=== PATIENT | female | born 1965 | race Caucasian/White ===

== ENCOUNTER 2019-06-02 10:35 | Outpatient (CLI) | payer MEDICAID, SELFPAY ==
--- NOTE | 2019-06-02 10:48 | XR_ITS ---
WS: [id number] CHEST 2 VIEWS HISTORY: lung mass COMPARISON: Chest CT 05/05/2019 Lungs: Mild pulmonary hyperinflation. Pleural thickening and nodularity at the RIGHT apex is moderate ly improved since 05/05/2019. No change in the 15 mm nodule in the RIGHT lower lung field. LEFT lung is clear. Chronic emphysema. Cardiac size: Normal. Mediastinum/Aorta: Mild atherosclerosis aorta. Bones: RIGHT convex curvature thoracic spine and spondylosis. XR/XR chest 2V* [id number] IMPRESSION: 1. Slight improvement in the pleural thickening and nodularity at the RIGHT ap ex since 05/05/2019. 2. Stable 15 mm nodule in the RIGHT lower lung field. No progression since .
== END 2019-06-02 10:36 | disposition home or self-care (01) ==
PROVIDERS: Family Provider Nurse Practitioner Family; PCP Nurse Practitioner Family; Visit Provider Thoracic Surgery (Cardiothoracic Vascular Surgery)
DX: R91.8 Other nonspecific abnormal finding of lung field (principal)
CPT/HCPCS: 71046

== ENCOUNTER 2019-06-07 08:30 | Outpatient (CLI) | payer MEDICAID, SELFPAY | END 2019-06-07 08:31 | disposition home or self-care (01) | LOC: RT 08:34 | PROVIDERS: Family Provider Nurse Practitioner Family; PCP Nurse Practitioner Family; Visit Provider Thoracic Surgery (Cardiothoracic Vascular Surgery) | DX: R91.8 Other nonspecific abnormal finding of lung field (principal) | CPT/HCPCS: 94060; 94726; 94729 ==

== ENCOUNTER 2019-06-16 13:47 | Outpatient (CLI) | payer MEDICAID, SELFPAY ==
--- NOTE | 2019-06-16 | US_ITS ---
WS: [id number] Pelvic ultrasound, 06/16/2019 Clinical Data: PELVIC MASS Comparison: None. Findings: The uterus measures 3.39 cm x 5.5 cm x 7.24 cm. Numerous leiomyomas are seen within the uterus. The l argest measures 1.6 x 2.9 x 2.4 cm. There is also an area of increased echogenicity which also probab ly represents a fibroid measuring 0.8 x 1.0 x 1.2 cm. The endometrium is 0.26 cm. No intrauterine or abnormal intrauterine mass is seen. The ovaries were not imaged. There is no fluid in the cul-de-sac. US/US pelvic with transvaginal Impression: Multiple uterine leiomyomas.
--- NOTE | 2019-06-16 15:18 | CTR_ITS ---
PROCEDURE INFORMATION: Exam: CT Neck With Contrast Exam date and time: 06/16/2019 3:36 PM Age: 53 years old Clinical indication: Condition or disease; Cancer; Other: Supraglotic squamous cell; Additional info: HX of cancer TECHNIQUE: Imaging protocol: Computed tomography images of the neck with intravenous contrast. Total DLP: 542.48 mGy-cm Radiation optimization: All CT scans at this facility use at least one of these dose optimization techniques: automated exposure control; mA and/or kV adjustment per patient size (includes targeted exams where dose is matched to clinical indication); or iterative reconstruction. Contrast material: OMNI 300; Contrast volume: 95 ml; Contrast route: IV; COMPARISON: CT neck w con* [id number] 01/05/2019 9:03 AM FINDINGS: Nasopharynx: Asymmetric torus tubarius. Oropharynx: Unremarkable. No significant tonsillar enlargement. Hypopharynx: Unremarkable Larynx: Unremarkable. Normal epiglottis. Retropharyngeal space: Unremarkable. Submandibular/Parotid glands: Normal. Glands are normal in size. Thyroid: Normal. No enlarged or calcified nodules. Lymph nodes: Unremarkable. No lymphadenopathy. Trachea: Visualized trachea is unremarkable. Lungs: Large cavitary spiculated mass in the right upper lobe is partially imaged measuring at least 5.0 by 4.5 cm in size. Additional adjacent cavitary nodule image 86 measures 1.2 x 1.5 cm in size. Severe emphysematous changes are noted. There is adjacent right apical pleural thickening. There is some mild pneumonitis and volume loss in the right upper lobe adjacent to the mass. Bones/joints: Osteopenia and moderate degenerative changes are noted in the cervical spine. No neoplastic bony destruction or acute fracture. Soft tissues: There is mild asymmetric soft tissue thickening and asymmetry torus tubarius 25. CT/CT neck w con* [id number] IMPRESSION: 1. Mild asymmetry/mucosal thickening of the right torus tubarius compared to the left. No additional mass. No pathologic adenopathy in the neck. 2. Large cavitary mass with adjacent smaller cavitary nodule right upper lobe. Fleischner follow up recommendations for incidental nodules are not indicated. Follow up per patient's medical condition. Radiation Dose CTDIVOL = (mGy): DLP = 542.48 (mGy-cm)
--- NOTE | 2019-06-16 15:18 | CT_ITS ---
WS: [id number] CT HEAD WITH AND WITHOUT CONTRAST HISTORY: HX OF CANCER TECHNIQUE: Noncontrast 2.5 mm axial images obtained from the vertex to the skull base. Additional candida ging performed at 2.5 mm axial images status post IV contrast. Bone and soft tissue windows are revie wed. All CT scans at [facility] use at least one of these dose optimization techniques: a utomated exposure control; mA and/or kV adjustment per patient size (includes targeted exams where do se is matched to clinical indication); or iterative reconstruction. CONTRAST: Omnipaque 300; 95 mL IV. DLP: 1136.13 mGy.cm COMPARISON: None available. No acute intracranial hemorrhage, edema or midline shift. No enhancing mass or vascular malformations identified. Dural venous sinuses are normally enhancing. Visualized [place] is unremarkable. Paranasal sinuses as visualized: Clear. Mastoid air cells: Clear. Calvarium and scalp: Intact. CT/CT head wo/w con [id number] IMPRESSION: 1. No intracranial hemorrhage or mass. 2. Negative CT brain.
[2019-06-16] MEDS: iohexol 300 mg/mL 100 mL Btl 50 ML IV (15:37)
[2019-06-16] MEDS: iohexol 300 mg/mL 100 mL Btl 45 ML IV (15:38)
== END 2019-06-16 13:48 | disposition home or self-care (01) ==
LOC: RAD 13:47
PROVIDERS: Family Provider Nurse Practitioner Family; PCP Nurse Practitioner Family; Visit Provider Nurse Practitioner Family
DX: R19.00 Intra-abdominal and pelvic swelling, mass and lump, unspecified site (principal); Z85.9 Personal history of malignant neoplasm, unspecified; D25.9 Leiomyoma of uterus, unspecified
CPT/HCPCS: 70470; 70491; 76830; 76856

== ENCOUNTER 2019-07-05 05:37 | Day surgery (SDC) | payer MEDICAID, SELFPAY ==
[2019-07-04 12:43] VITALS: BMI 25.4
[2019-07-05] VITALS (12 sets, daily range): BP systolic 99–125; BP diastolic 48–71; PULSE 63–97; RESP 13–21; TEMP 36.4–36.9; O2SAT 88–99
--- NOTE | 2019-07-05 05:53 | ECG_ITS ---
Measurements Intervals [place] Rate: 54 P: 65 FL: 155 QRS: 66 QRSD: 104 T: 50 QT: 432 QTc: 412 SINUS BRADYCARDIA INCOMPLETE RIGHT BUNDLE BRANCH BLOCK [90+ ms QRS DURATION, TERMINAL R IN V1/V2, 40+ ms S IN I/aVL/V4/V5/V6] No previous ECG available for comparison Electronically Signed On 07-05-2019 15:22:24 ROLLER OPERATOR by Yordan Weber M.D. [email or web address]
--- NOTE | 2019-07-05 06:13 | ANES.PREANE2 ---
Pre-Anesthetic Assessment Pre-Anesthetic Assessment: Height/Weight: Height 1.57 m Weight 63.049 kg Temp Pulse Resp BP Pulse Ox 97.8 F 63 16 125/69 97 07/05/19 06:01 07/05/19 06:01 07/05/19 06:01 07/05/19 06:01 07/05/19 06:01 Preop Diagnosis: RUL mass Proposed Procedure: Operation Date: 07/05/19 07:00 Proposed Procedures p Bronchoscopy(Not Applicable) - Jose Mera MD Last intake: Intake Last Liquid Date 07/04/19 Last Liquid Time 20:00 Last Solid Date 07/04/19 Last Solid Time 20:00 Social: Social History: Tobacco Packs per day: 1.5 Pack years: 50+ Exam: Pre-Anes Outpt Exam: alert, oriented x 3, clear to auscultation bilaterally and regular rate & rhythm Airway: Submandibular: WNL Cervical ROM: WNL MP: 1 Additional comments: edentulous Pulmonary: Pulmonary: COPD Comments: RUL mass Metabolic: Metabolic: Thyroid Anesthetic Plan: ASA status: 3 Anesthesia: General PFSH Anesthesia PFSH: Social History (Updated 07/04/19 @ 12:38 by Wendy Thakkar) Smoking and tobacco status: current every day smoker cigarettes Packs smoked per day: 1.5 Alcohol intake: never Data Anesthesia Cardiac Studies: No Data to Display
--- NOTE | 2019-07-05 06:22 | PM.OPSURHP ---
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 She has some consolidation and a potential mass in the apex of the right upper lobe as noted on CT scan of May 05, 2019. She was recently treated as an outpatient for can community-acquired pneumonia and concerns of a right middle lobe pneumonia. CT scan of May 05 reveals a 5.8 x 5.9 cm right upper lobe consolidative lesion. There is surrounding patchy infiltrates. Most recent chest x-ray of June 02 as compared to the CT scan of May 05 describes slight improvement of this area, though still prominent. I have recommended bronchoscopy for further evaluation. Pending results of the study, we may recommend a repeat PET scan. Patient has a long history tobacco use and continues to smoke at least a pack a day. She has been followed by Dr. Turcios from oncology. She was scheduled for follow-up visit with Dr. García from ENT to consider repeat panendoscopy, though she did miss that appointment. Review of Systems Const: Reports: other (Complains of neck pain); Denies: fever, chills, change in appetite, change in weight, fatigue or night sweats Eyes: Denies: change in vision or blurry vision ENMT: Denies: painful swallowing or hoarseness Card: Denies: chest pain, palpitations, irregular heart rhythm or edema Resp: Reports: shortness of breath and non-productive cough GI: Denies: abdominal pain, nausea, vomiting, difficulty swallowing, heartburn/indigestion or change in bowel habits : Denies: painful urination, urinary frequency, urinary urgency or urinary hesitancy Musc: Denies: extremity pain or extremity swelling Skin/Breast: Denies: rash Neuro: Denies: headache, numbness in extremities, weakness in extremities or changes in sensation Psych: Denies: anxiety, depression or change in appetite Endo: Denies: excessive urination, excessive thirst or cold intolerance Enrique/Lymph: Denies: easy bruising, easy bleeding, petechiae or enlarged lymph nodes Medications/Allergies Allergies Allergy/AdvReac Type Severity Reaction Status Date / Time No Known Allergies Allergy Verified 07/04/19 12:38 PFSH PFSH: Medical History COPD (chronic obstructive pulmonary disease) History of malignant neoplasm of larynx Lung mass Social History Smoking and tobacco status: current every day smoker cigarettes Packs smoked per day: 1.5 Alcohol intake: never Vital Signs Vitals Signs: Last Vital Signs Temp 97.8 F 07/05/19 06:01 Pulse 63 07/05/19 06:01 Resp 16 07/05/19 06:01 BP 125/69 07/05/19 06:01 Pulse Ox 97 07/05/19 06:01 Weight: Weight last 48 hrs Weight 139 lb Physical Exam Const: COMMON NORMALS: oriented x3 and alert ORIENTATION/CONSCIOUSNESS: Yes oriented to person, Yes oriented to place and Yes oriented to time HENMT: COMMON NORMALS: normocephalic HEAD & SCALP: normocephalic; no cranial bruits Neck/C-Spine: COMMON NORMALS: supple, no JVD and no carotid bruits GENERAL: Yes trachea midline and No lymphadenopathy CERVICAL SPINE: Yes cervical ROM normal Chest: COMMONS NORMALS: inspection of chest normal and palpation of chest normal Resp: COMMON NORMALS: normal respiratory effort, no use of accessory muscles and percussion normal EFFORT & INSPECTION: Yes able to speak in complete sentences and Yes symmetric chest movement AUSCULTATION: wheezes (Late expiration) expiratory wheezes PERCUSSION: percussion normal Cardio: COMMON NORMALS: no JVD, regular rate, regular rhythm, S1 normal heart sound, S2 normal heart sound, no gallops, no murmurs, no rub and peripheral pulses 2+ throughout JUGULAR VENOUS DISTENTION: no JVD RATE: regular rate RHYTHM: regular rhythm HEART SOUNDS: S1 normal and S2 normal PERIPHERAL PULSES: pulses 2+ throughout Neuro: COMMON NORMALS: oriented x3, no focal motor deficits and no sensory deficits noted SENSORIUM/ORIENTATION: Yes alert, Yes oriented to person, Yes oriented to place and Yes oriented to time GAIT: Yes normal gait A&P Assessment and plan (1) Lung mass: 53-year-old female with laryngeal carcinoma status post chemotherapy and XRT. She has a right upper lobe consolidative mass which has slightly improved over the past 2 months though is still quite prominent. We recommended bronchoscopy for further assessment. She continues to smoke at least a pack a day. Rationale was carefully discussed. Details the risk of procedure reviewed and consents have been provided for signature. Status: Acute Code(s): R91.8 - Other nonspecific abnormal finding of lung field Coding Level of Care Code Acute Business Banking Officer for Chg Fwd Exam Detailed Medical Decision Making Moderate Complexity Diagnoses Lung mass R91.8 Time Spent (min) 25
[2019-07-05] MEDS: sodium chloride 0.9% 1,000 ML 30 ML IV (06:25)
[2019-07-05 06:34] LABS: INR 0.88 (0.8-1.2)
[2019-07-05] MEDS: cetacaine Spray 5 gm Can 1 SPRAY TOPICAL (07:23)
[2019-07-05] MEDS: sodium bicarbonate 1 mEq/mL SDV 50mL 50 MEQ XX (07:29)
--- NOTE | 2019-07-05 07:38 | PM.OP ---
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 They showed increased activity on PET scan of June 10, 2019. Continued tobacco use. Bronchoscopy was recommended. Procedure: Procedure: Ms. Elena underwent general endotracheal anesthesia with an 8.0 endotracheal tube. With adequate anesthesia, flexible bronchoscope was inserted through the endotracheal tube. In a methodical fashion the trachea, gisell, right main bronchus and associated lobar bronchi were inspected. In a similar fashion the left side was inspected. Secretions were cleared as needed to allow for adequate inspection. Normal saline or normal saline and bicarbonate solution were used to clear thick or tenacious secretions. Findings: Main gisell and secondary gisell were sharp. Branching anatomy was normal. There is no evidence for submucosal infiltration or extrinsic compression. Mucosa was minimally friable. Mucosal was mildly to modestly erythematous. No endobronchial lesions or deformation of orifice ease were noted. Saline/bicarbonate solution was utilized to clear moderately thick and clear secretions from all prominent airways. As no suspicious lesions were identified, no biopsies were taken. Once completed, the scope was withdrawn under direct visualization confirming cleared secretions and no substantial bleeding. Endoscopic photos were taken as required to document pathology. The patient tolerated the procedure well and was taken to postoperative care unit. I did travel counselor automobile club with the family at the completion of the procedure. We will plan for outpatient pulmonary function studies to be performed and then follow-up in my clinic to separate consider right thoracoscopy and appropriate biopsy of concerning PET positive lesions in the right lung. Her substantial lung dysfunction and continued tobacco use does put her at a markedly increased risk for operative complications.
--- NOTE | 2019-07-05 07:44 | SUR.PHASEI ---
0743 PATIENT TO PACU AT THIS TIME FROM OR. RR EVEN AND UNLABORED. PATIENT PLACED ON SIMPLE MASK AT 8L, SPO2 99%. PATIENT UNRESPONSIVE TO VERBAL STIMULI AT THIS TIME. PROTECTING AIRWAY.
[2019-07-05] MEDS: ipratropium 0.5 mg/2.5 mL Neb INHALATION (08:08)
== END 2019-07-05 09:05 | disposition home or self-care (01) ==
PROVIDERS: Family Provider Nurse Practitioner Family; PCP Nurse Practitioner Family; Visit Provider Thoracic Surgery (Cardiothoracic Vascular Surgery)
PROC: 0BJ08ZZ Inspection of Tracheobronchial Tree, Via Natural or Artificial Opening Endoscopic (ICD-10-PCS; CPT 31622; principal; 2019-07-05 07:00)
DX: R91.8 Other nonspecific abnormal finding of lung field (principal); F17.210 Nicotine dependence, cigarettes, uncomplicated; J44.9 Chronic obstructive pulmonary disease, unspecified; Z85.118 Personal history of other malignant neoplasm of bronchus and lung; Z92.21 Personal history of antineoplastic chemotherapy; Z92.3 Personal history of irradiation
CPT/HCPCS: 31622; 12345; 36415; 85610; 93005; J2001; J2704; J3010; J3490; J7030; J7611; J7644

== ENCOUNTER 2019-07-24 14:40 | Inpatient (IN) | payer MEDICAID, SELFPAY ==
[2019-07-20 10:01] VITALS: BMI 25.2
[2019-07-20 10:26] LABS: Add Urine Microscopic? NO
[2019-07-20 10:29] LABS: Basophils % 0.7 %; Eosinophils # 0.1 10^3/uL (0.0-0.8); Hematocrit 39.6 % (37.0-47.0); Hemoglobin 12.6 g/dL (11.5-15.3); Lymphocytes # 0.9 10^3/uL (0.8-4.8); Lymphocytes % 16.5 %; Mean Corpuscular HGB Conc 31.8 g/dL (30.0-36.0); Mean Platelet Volume 9.3 fL (7.4-10.4); Monocytes # 0.5 10^3/uL (0.2-0.9); Monocytes % 8.9 %; Neutrophils % 71.4 %; Nucleated Red Blood Cells % 0 %; Platelet Count 319 10^3/cmm (130-400); Red Blood Count 4.35 10^6/uL (4.1-5.3); White Blood Count 5.6 10^3/uL (4.0-10.0)
--- NOTE | 2019-07-20 10:33 | ANES.PREANE2 ---
Pre-Anesthetic Assessment Pre-Anesthetic Assessment: Height/Weight: Height 1.57 m Weight 62.596 kg Preop Diagnosis: Right upper lobe lung mass Proposed Procedure: Operation Date: 07/24/19 08:10 Proposed Procedures p VATS with poss thoracotomy with lung biopsy(Right) - Jose Mera MD Familial anesthetic complications: None Social: Social History: Tobacco and No alcohol Packs per day: 1.5 ppd Exam: Pre-Anes Outpt Exam: alert, oriented x 3, clear to auscultation bilaterally and regular rate & rhythm Airway: Cervical ROM: WNL MP: 1 Dentition: False Pulmonary: Pulmonary: COPD Comments: Lung mass CV/HEM: CV/HEM: None reported : : None reported Hepatic: Hepatic: None reported GI: GI: None reported Metabolic: Metabolic: Thyroid Musc/skel: Musc/skel: None reported Neuropsych: Neuropsych: None reported Anesthetic Plan: ASA status: 3 Anesthesia: General Risk of > 500 ml blood loss (7ml/kg in children): No PFSH Anesthesia PFSH: Social History Smoking and tobacco status: current every day smoker cigarettes Packs smoked per day: 1.5 Alcohol intake: never Data Anesthesia CBC & Chem 7: 07/20/19 10:10 Other Labs: Laboratory Results - last 48 hr 07/20/19 10:10 WBC 5.6 RBC 4.35 Hgb 12.6 Hct 39.6 MCV 91.0 MCH 29.0 MCHC 31.8 RDW 14.0 Plt Count 319 MPV 9.3 Neut % (Auto) 71.4 Lymph % (Auto) 16.5 [place] % (Auto) 8.9 Eos % (Auto) 2.0 Baso % (Auto) 0.7 Neut # (Auto) 4.0 Lymph # (Auto) 0.9 [place] # (Auto) 0.5 Eos # (Auto) 0.1 Baso # (Auto) 0.0 Nucleated RBC % (auto) 0 Nucleated RBCs # 0.0 Cardiac Studies: No Data to Display
[2019-07-20 10:49] LABS: Alanine Aminotransferase 9 U/L (0-33); Albumin Level 3.7 g/dL (3.5-5.2); Alkaline Phosphatase 87 IU/L (35-105); Anion Gap 12.3 (5-19); Aspartate Amino Transferase 14 U/L (0-32); Blood Urea Nitrogen 11 mg/dL (6-20); Calcium 9.8 mg/dL (8.5-10.5); Carbon Dioxide 30 mmol/L (22-29); Chloride 102 mmol/L (98-107); Creatinine Clr Calc Pharmacy 78.0561; Globulin 4.2 g/dL (1.3-4.6); Glomerular Filtration Rate 86.6 mL/min (90-130); Glucose 110 mg/dL (65-115); Osmolality Calculated 287 mOsm/kg (285-295); Potassium 4.3 mmol/L (3.5-5.1); Sodium 140 mmol/L (136-145); Total Bilirubin 0.4 mg/dL (0.15-1.2); Total Protein 7.9 g/dL (6.6-8.7)
[2019-07-20 10:53] LABS: INR 0.89 (0.8-1.2)
[2019-07-20 10:56] LABS: Bilirubin Urine Neg (NEGATIVE); Blood Urine Neg (Negative); Glucose Urine UA Norm (Normal); Ketones Urine Negative (Negative); Leukocyte Esterase Urine Negative (Negative); Nitrate Urine Negative (Negative); Protein Urine Neg (Negative); Specific Gravity, Urine 1.005 (1.005-1.030); Urine Appearance Clear (CLEAR); Urine Color Straw (Yellow); Urobilinogen Urine Norm (Negative)
[2019-07-24] VITALS (27 sets, daily range): BP systolic 79–121; BP diastolic 43–73; PULSE 54–89; RESP 13–25; TEMP 36.4–36.6; O2SAT 94–100
[2019-07-24] MEDS: sodium chloride 0.9% 1,000 ML 30 ML IV (07:41)
--- NOTE | 2019-07-24 09:17 | W.PM.OPSUD ---
Surgery/Procedure H&P Update DATE OF PROCEDURE: July 24, 2019 DATE H&P PERFORMED: 07/05/19 H&P UPDATE INFORMATION: I have reviewed H&P completed within last 30 days, I have examined patient prior to procedure and No changes to prior documentation PREOP DIAGNOSIS: Right upper lobe lung mass PLANNED PROCEDURE: Operation Date: 07/24/19 09:30 Proposed Procedures p VATS with poss thoracotomy with lung biopsy(Right) - Jose Mera MD
--- NOTE | 2019-07-24 09:57 | ANES.PROC ---
Anesthesia Procedures Procedure/Date: 07/24/19 Thoracic epidural T56 Procedure Narrative: Requested by Dr Mera to place thoracic epidural for postop pain management. Verbal consent given . Sedated in the OR, placed LLD position. Sterile P&D. Placed T5-6 without difficutly. - test done [place] 1.5% with epi 3cc
[2019-07-24] MEDS: vancomycin 1,000 MG SDV 2000 MG IRRIGATION (10:48)
--- NOTE | 2019-07-24 11:04 | SUR.OPER ---
1050 - Pt's sister notified of surgery start via her cell phone.
--- NOTE | 2019-07-24 11:05 | ANES.PROC ---
Anesthesia Procedures Procedure/Date: 07/24/19 Arterial Line: Time Out Performed: Yes Consent: requested by attending/covering physician Size (Gauge): 20 Technique Used: guide wire technique Post-Procedure: dry sterile dressing placed Patient Tolerated Procedure: well and no complications Complications: none Site: right and radial
--- NOTE | 2019-07-24 12:03 | SUR.OPER ---
1253 - Pt's sister updated on surgery progress and pt status via her cell phone.
--- NOTE | 2019-07-24 14:01 | PM.OP ---
Operative Report Date of procedure: July 24, 2019 Pre-op Diagnosis: Right upper lobe lung mass Post-op diagnosis: same Procedure Done: 2. Right thoracoscopy with wedge resection right lower lobe nodule which returned granulomatous inflammation 1. Right upper lobectomy Specimens removed/disposition: Wedge resection right lower lobe returned granulomatous inflammation by frozen section Right upper lobe sent for permanent specimen Surgeon: Jose Mera Anesthesia: General Complications: None: Post procedure chest x-ray pending Condition: stable Disposition: ICU Brief History: 54-year-old female with history of laryngeal carcinoma status post radiation therapy. She has right upper lobe large cystic lesion as well as satellite lesions in the right lower lobe lesion with varying activities by PET scan. Bronchoscopy been originally performed the revealed no endobronchial lesions. Unfortunately, she continues to smoke between 1 and 2 packs/day. It appears that she has advanced thoracic disease, though this may be a new primary. Given the negative bronchoscopy, rib recommended thoracoscopy with attempt at biopsy for diagnosis. She has poor PFTs and overall is in poor condition. Rationale for our recommendation was carefully discussed. Proper consents have been reviewed and signed. Procedure: Ms. Elena received a thoracic epidural catheter preoperatively by Dr. Bui. She was taken operating room theater carefully positioned on the OR table where appropriate invasive lines were placed including arterial line. She underwent double-lumen endotracheal intubation with confirmation by endoscopy. She was carefully positioned in the left lateral decubitus position a fracture RotaTeq to padding and secured. Right lung was removed from ventilation. 3 thoracoscopic ports were placed in a triangular fashion in the anterior axillary line mid axillary line and posteriorly. Scope was inserted. There was clearly adhesions at the apex which we had noted on CT scan appeared to have a large cystic lesion. There are other satellite nodules in this area adhesions but a very descriptive isolated lesion in the right lower lobe. We elected to dissected area free and utilizing endoscopic stapler performed a generous triangular biopsy to include this lesion. This was sent to pathology which is returned this to be consistent with a area of granulomatous inflammation without malignancy. Therefore, despite our preference, we elected to proceed with dissecting out these adhesions in the apical region off the chest wall. This was done in a methodical meticulous fashion anteriorly to posteriorly. Once this was free, we elected to use endoscopic staplers to perform what would be essentially a right upper lobectomy with multiple firings of the stapler. Once the specimens were released, it was of such a size and bulkiness, that it would not come out through a port site. Therefore, we elected to connect the most anterior and posterior ports and a limited thoracotomy with retraction utilizing Finochietto retractor. This allowed us to remove the specimen intact and was sent to pathology for permanent sectioning. A single pleural drain was placed anteriorly and apically connected to Pleur-evac suction. The lung was reinflated, despite the multiple staple lines, and had a relatively low air leak. We was irrigated with antibiotic solution. Stasis confirmed. Retractors were removed. Sponge needle count was correct. We closed our limited left posterior thoracotomy incision by reapproximated chest wall with interrupted #1 Vicryl suture. Fascia closed with running 0 Vicryl suture followed by a layer of 2-0 Vicryl suture followed by Monocryl suture and surgical galina. History was secured to the skin utilizing 2-0 silk suture. Ms. Elena was then carefully returned to the supine position where she was awakened and extubated. She was then transported to ICU in stable condition. I did supervisor counseling and guidance with her family at the completion of the procedure.
--- NOTE | 2019-07-24 14:47 | XR_ITS ---
WS: [id number] XR chest 1V portable [id number] REASON FOR EXAM: post op thoracotomy FINDINGS: This study shows a chest tube in the right chest. Subsegmental atelectasis along the right upper lobe hilum and evidence of previous resection this area. A residue 10-15% pneumothorax on the right The nodular density in the right lower lung is not observed. A chest tube is seen on the right side. XR/XR chest 1V portable [id number] IMPRESSION: Postop findings with a chest tube in the right thoracic cavity with residue pne umothorax 10-15%.
[2019-07-24] MEDS: lactated ringers 1,000 ML 100 ML IV (14:56)
[2019-07-24] MEDS: ketorolac 30 mg/mL INJ IVP ×2 (14:56→20:32)
[2019-07-24] MEDS: ipratropium-albuterol 3 mL Neb INHALATION (16:22)
[2019-07-24] MEDS: morphine 4 mg/mL SDV 1 mL 2 MG IVP (16:28)
[2019-07-24] MEDS: ceFAZolin 1,000 MG in sodium chloride 0.9% (plus) 50 ML 100 MG IV (19:22)
[2019-07-25] VITALS (52 sets, daily range): BP systolic 86–128; BP diastolic 46–77; PULSE 57–89; RESP 15–26; TEMP 36.6–37.1; O2SAT 92–100
[2019-07-25] MEDS: lactated ringers 1,000 ML 100 ML IV ×3 (01:25→21:06)
[2019-07-25] MEDS: ketorolac 30 mg/mL INJ IVP ×4 (02:55→21:06)
[2019-07-25] MEDS: ceFAZolin 1,000 MG in sodium chloride 0.9% (plus) 50 ML 50 MG IV (02:55)
[2019-07-25 04:23] LABS: Basophils % 0.2 %; Eosinophils % 0.4 %; Hematocrit 34.4 % (37.0-47.0); Hemoglobin 10.8 g/dL (11.5-15.3); Lymphocytes # 0.8 10^3/uL (0.8-4.8); Lymphocytes % 9.4 %; Mean Corpuscular HGB Conc 31.4 g/dL (30.0-36.0); Mean Corpuscular Hemoglobin 30.3 pg (28.0-34.0); Mean Corpuscular Volume 96.6 fL (81-99); Mean Platelet Volume 9.2 fL (7.4-10.4); Monocytes # 0.6 10^3/uL (0.2-0.9); Monocytes % 7.5 %; Nucleated Red Blood Cells % 0 %; Platelet Count 261 10^3/cmm (130-400); Red Blood Count 3.56 10^6/uL (4.1-5.3); Red Cell Distribution Width 14.1 % (12.1-15.1); White Blood Count 8.5 10^3/uL (4.0-10.0)
[2019-07-25 04:40] LABS: Blood Urea Nitrogen 7 mg/dL (6-20); Calcium 8.4 mg/dL (8.5-10.5); Carbon Dioxide 29 mmol/L (22-29); Chloride 108 mmol/L (98-107); Glomerular Filtration Rate 127.6 mL/min (90-130); Glucose 117 mg/dL (65-115); Osmolality Calculated 291 mOsm/kg (285-295); Sodium 142 mmol/L (136-145)
--- NOTE | 2019-07-25 06:00 | XR_ITS ---
WS: [id number] XR chest 1V portable [id number] REASON FOR EXAM: Postop day #1 status post right upper lobectomy FINDINGS: Persistent pneumothorax on the right side is seen with a chest tube in good position. No pr ogression is seen since the earlier exams of July 24, 2019. The atelectatic segment off the right hi lum is again seen. And prominence of the right hilum is noted. XR/XR chest 1V portable [id number] IMPRESSION: Unchanged pneumothorax on the right Prominent soft the right hilum suggesting a mass effect. Postop changes of the right thoracic cavity.
--- NOTE | 2019-07-25 06:03 | PC.NURSE ---
SHIFT SUMMARY PT HAS BEEN ALERT AND ORIENTATED. PT PAIN HAS BEEN UNDER CONTROL WITH THE ROPRIVICAN PUMP. PT IV REMAINS PATENT. PT RIGHT UPPER LOBE REMAINS ABSENT, ALL OTHER LOBES REMAIN DIMINISHED. PT HAS BEEN TURNED PERIODICALLY. PT HAS HAD ADEQUATE URINE OUTPUT.
--- NOTE | 2019-07-25 07:22 | PM.PN ---
Subjective Subjective: Interval history: Postop day #1 status post right upper lobectomy. Uneventful night. Chest tube output 560 cc past 24 hours. Pain appears to be under good control. Chest x-ray with improvement of parenchymal hematoma. Consolidation appears to be improved. There is still incomplete filling of the chest cavity of the right lung with some pneumothorax laterally and apically. Vitals/I&O/Wt Last Vital Signs Temp 98.8 F 07/25/19 04:00 Pulse 64 07/25/19 06:00 Resp 19 H 07/25/19 06:00 BP 91/52 07/25/19 06:00 Pulse Ox 97 07/25/19 06:00 07/24/19 07/25/19 07/25/19 22:59 06:59 14:59 Intake Total 618.333 / 806.995 5751.667 / 1700.000 Output Total 572 / 572 1538 / 2110 Balance 46.333 / 96.333 -506.333 / -410.000 Physical Exam Chest: OTHER: Surgical dressing is dry. Resp: AUSCULTATION: diminished lung sounds bilateral Urinary Catheter Management^: Felipe: Cath Placed During This Visit: yes Reason for Continuing Indwelling Catheter: Accurate Measurement of Urinary Output in Critically Ill Patients Urinary Catheter Date of Insertion: 07/24/19 Urinary Catheter Time of Insertion: 10:20 Data : 07/25/19 03:50 07/25/19 03:50 A&P Assessment and plan (1) Status post lobectomy of lung: Postop day #1 status post right upper lobectomy. Pathology pending. DC A-line Out of bed in chair Continue chest tube to suction Chest x-ray in a.m. Status: Acute Code(s): Z90.2 - Acquired absence of lung [part of] Attestations Medical Necessity Statement*: Postop day #1 status post right upper lobectomy. Procedures Arterial Line Size (Gauge): 20 Coding Level of Care Code Acute Box Covering Machine Operator for Chg Fwd Diagnoses Status post lobectomy of lung Z90.2
[2019-07-25] MEDS: pantoprazole DR 40 mg Tablet PO (08:02)
[2019-07-25] MEDS: ipratropium-albuterol 3 mL Neb INHALATION ×2 (09:35→14:28)
[2019-07-25] MEDS: ceFAZolin 1,000 MG in sodium chloride 0.9% (plus) 50 ML 100 MG IV (10:49)
--- NOTE | 2019-07-25 20:05 | PC.NURSE ---
assessment per flowsheet diminshed breath sounds to ble. encouraged t/c/d pt sitting up in bed states it hurts to cough. epidural in place . offered pain medication . only need requested was ice at this time. drsg to right side of back c/d/i. chest tube noted to right side no leak . vss per cm. deshaun holm.
[2019-07-25] MEDS: ipratropium 0.5 mg/2.5 mL Neb INHALATION (20:40)
[2019-07-25] MEDS: HYDROcodone-acetaminophen 5-325 mg Tablet 1 TAB PO (21:06)
[2019-07-26] VITALS (24 sets, daily range): BP systolic 83–133; BP diastolic 46–76; PULSE 57–81; RESP 14–24; TEMP 36.7–37.2; O2SAT 90–100
[2019-07-26] MEDS: ketorolac 30 mg/mL INJ IVP ×4 (02:53→20:56)
[2019-07-26] MEDS: ipratropium-albuterol 3 mL Neb INHALATION ×3 (02:57→21:57)
[2019-07-26 04:53] LABS: Basophils % 0.4 %; Eosinophils # 0.1 10^3/uL (0.0-0.8); Eosinophils % 1.5 %; Hematocrit 31.6 % (37.0-47.0); Hemoglobin 9.8 g/dL (11.5-15.3); Lymphocytes # 0.9 10^3/uL (0.8-4.8); Mean Corpuscular Hemoglobin 29.9 pg (28.0-34.0); Mean Corpuscular Volume 96.3 fL (81-99); Mean Platelet Volume 9.3 fL (7.4-10.4); Monocytes # 0.7 10^3/uL (0.2-0.9); Monocytes % 9.8 %; Neutrophils # 5.6 10^3/uL (1.8-7.7); Nucleated Red Blood Cells % 0 %; Platelet Count 232 10^3/cmm (130-400); Red Blood Count 3.28 10^6/uL (4.1-5.3); Red Cell Distribution Width 14.3 % (12.1-15.1); White Blood Count 7.3 10^3/uL (4.0-10.0)
[2019-07-26 05:04] LABS: Anion Gap 6.7 (5-19); Blood Urea Nitrogen 6 mg/dL (6-20); Calcium 8.8 mg/dL (8.5-10.5); Carbon Dioxide 33 mmol/L (22-29); Chloride 106 mmol/L (98-107); Glomerular Filtration Rate 127.6 mL/min (90-130); Glucose 123 mg/dL (65-115); Osmolality Calculated 291 mOsm/kg (285-295); Potassium 3.7 mmol/L (3.5-5.1); Sodium 142 mmol/L (136-145)
--- NOTE | 2019-07-26 06:53 | PC.NURSE ---
0600 pt oob to chair per charge nurse . no distress noted. vss per cm. deshaun holm.
--- NOTE | 2019-07-26 07:00 | XR_ITS ---
WS: [id number] XR chest 1V portable [id number] REASON FOR EXAM: Status post lobectomy FINDINGS: A persistent right pneumothorax persists no change since previous exam July 25, 2019. Ches t tube remains in good position. The left lung is well aerated. The heart is normal no shift of the mediastinum is seen. XR/XR chest 1V portable [id number] IMPRESSION: Persistent small pneumothorax on the right Chest tube in good position.
--- NOTE | 2019-07-26 07:16 | P.PN_ITS ---
Subjective Subjective: Interval history: Postop day #2 status post right upper lobectomy and wedge resection right lower lobe. Pathology is pending. Up in chair on rounds. Thoracotomy discomfort under better control. Airleak appears to have dissipated. Chest tube output 135 cc over the past 12 hours. Vitals/I&O/Wt Last Vital Signs Temp 98.4 F 07/25/19 19:00 Pulse 63 07/26/19 06:00 Resp 16 07/26/19 06:00 BP 95/51 07/26/19 06:00 Pulse Ox 99 07/26/19 06:00 07/25/19 07/26/19 07/26/19 22:59 06:59 14:59 Intake Total 2196.667 / 3551.667 Output Total 2760 / 2760 1135 / 3895 Balance -563.333 / 791.667 -1135 / -343.333 Physical Exam Chest: COMMONS NORMALS: inspection of chest normal OTHER: Surgical dressing is clean and dry. Right pleural tube remains in good position. Resp: COMMON NORMALS: normal respiratory effort AUSCULTATION: diminished lung sounds on the right in the lower lung agee Urinary Catheter Management^: Felipe: Cath Placed During This Visit: yes Reason for Continuing Indwelling Catheter: Accurate Measurement of Urinary Output in Critically Ill Patients Urinary Catheter Date of Insertion: 07/24/19 Urinary Catheter Time of Insertion: 10:20 Data : 07/26/19 04:10 07/26/19 04:10 A&P Assessment and plan (1) Status post lobectomy of lung: Postop day #2 status post right upper lobectomy and wedge resection right lower lobe Will transfer to traore today. Will place chest tube to waterseal this evening with repeat chest x-ray in a.m. Status: Acute Code(s): Z90.2 - Acquired absence of lung [part of] Attestations Medical Necessity Statement*: Status post right upper lobectomy Time Spent in Patient Care: 16 - 35 minutes Procedures Arterial Line Size (Gauge): 20 Coding Level of Care Code Acute Diagnostic Technologist for Chg Fwd Diagnoses Status post lobectomy of lung Z90.2
[2019-07-26] MEDS: pantoprazole DR 40 mg Tablet PO (08:35)
[2019-07-27] VITALS (19 sets, daily range): BP systolic 91–124; BP diastolic 54–85; PULSE 59–78; RESP 15–20; TEMP 36.7–37.2; O2SAT 94–99
[2019-07-27] MEDS: ketorolac 30 mg/mL INJ IVP ×4 (02:24→21:33)
--- NOTE | 2019-07-27 06:00 | XR_ITS ---
WS: [id number] XR chest 1V portable [id number] REASON FOR EXAM: Postop day #3 status post right upper lobectomy FINDINGS: The right lung shows increased pneumothorax as compared to earlier exam approximately 20% n ow. The chest tube is in position. The right hilum remains enlarged. XR/XR chest 1V portable [id number] IMPRESSION: Increased pneumothorax.
[2019-07-27] MEDS: ipratropium-albuterol 3 mL Neb INHALATION ×2 (08:19→22:17)
[2019-07-27] MEDS: pantoprazole DR 40 mg Tablet PO (08:34)
--- NOTE | 2019-07-27 08:47 | PC.NURSE ---
cristina DCD cristina cath with 8ml/ns taken from balloon. pt walked to bathroom and 175 came out of cristina bag.
--- NOTE | 2019-07-27 14:46 | XR_ITS ---
WS: [id number] XR chest 1V portable [id number] REASON FOR EXAM: CHEST TUBE FINDINGS: Subcutaneous emphysema is seen outlines soft tissue of the right chest. The pneumothorax is similar to the exam earlier today. Prominence in the right hilum is seen. There is small amount of right pleural effusion seen. XR/XR chest 1V portable [id number] IMPRESSION: Progressive subcutaneous emphysema. Extends in the lateral chest wall and up to the lower neck. Unchanged pneumothorax on the right with now tendency hydropneumothorax.
[2019-07-27] MEDS: morphine 4 mg/mL SDV 1 mL IVP (15:08)
--- NOTE | 2019-07-27 15:11 | PC.NURSE ---
1420 pt had light on when the resp therapist and i came in, pt stated that the tube was out. I applied pressure over area then had resp go to charge and have her get vasoline gauze and call dr avila. vasoline gauze applied orders placed for surgery by dr avila. I gave vital signs of 113/73 hr 77 o2 94% in 2lnc
[2019-07-27] MEDS: lidocaine 1% INJ 20 mL SUBCUT (15:15)
--- NOTE | 2019-07-27 15:19 | PC.NURSE ---
[employer] pt down in surgery and I am unable to chart on [employer] pump.
--- NOTE | 2019-07-27 15:20 | XR_ITS ---
WS: [id number] XR chest 1V portable [id number] REASON FOR EXAM: THORACIC VENT FINDINGS: A thoracic vent has now been inserted in the right upper lung. Improved expansion of the ri ght lung is seen. The subcutaneous emphysema remains similar. XR/XR chest 1V portable [id number] IMPRESSION: A feeding tube is inserted through the thoracic area improved expansion of the right lung is seen. Persistent subcutaneous emphysema The chest tube appears to have been removed.
--- NOTE | 2019-07-27 15:46 | P.PN_ITS ---
Subjective Subjective: Interval history: Ms. Hernandez chest tube has become completely dislodged and reported to me by the nursing service. They have reported that vital signs are stable and she appears to be in no respiratory distress. I recommended placing an occlusive dressing over the chest tube site, transfer to the outpatient surgery department, stat chest x- ray. I will then review consider whether a thoracic vent should be placed. Vitals/I&O/Wt Last Vital Signs Temp 98.3 F 07/27/19 11:42 Pulse 71 07/27/19 11:42 Resp 20 H 07/27/19 12:00 BP 109/67 07/27/19 11:42 Pulse Ox 97 07/27/19 11:42 07/27/19 07/27/19 07/27/19 06:59 14:59 22:59 Intake Total 200 / 980 360 / 360 Output Total 1120 / 2860 275 / 275 Balance -920 / -1880 85 / 85 Physical Exam Urinary Catheter Management^: Felipe: Cath Placed During This Visit: yes, but has since been removed by the nurse Reason for Continuing Indwelling Catheter: Not indwelling catheter Urinary Catheter Date of Insertion: 07/24/19 Urinary Catheter Time of Insertion: 10:20 Date Urinary Catheter Removed: 07/27/19 Time Urinary Catheter Discontinued: 08:00 Data : 07/26/19 04:10 07/26/19 04:10 Attestations Medical Necessity Statement*: Status post lobectomy with dislodged chest tube. Procedures Arterial Line Size (Gauge): 20 Coding Level of Care Code Acute Estimator Printing Plate Making for Rony Jackson
--- NOTE | 2019-07-27 15:49 | P.OP_ITS ---
Operative Report Date of procedure: July 27, 2019 Pre-op Diagnosis: Status post right upper lobectomy with inadvertent dislodgment of right pleural tube and apical pneumothorax Post-op diagnosis: same Implants: 13 Omani thoracic vent Pathology: none sent Surgeon: Jose Mera Anesthesia: Local (12 cc 1% lidocaine) and Other (4 mg IV morphine) Complications: None Condition: stable Disposition: floor Brief History: 54-year-old female now postop day #3 status post right upper lobectomy for a pulmonary abscess with increased activity on PET scan, concerning for malignancy. 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 She has a long and continued history of tobacco use. There was apparent dislodgment of her chest tube on the traore earlier today. I was contacted by the nursing service. Occlusive dressing was applied. She was transported to the outpatient surgery department where chest x-ray revealed a modest right apical pneumothorax. She appears to be in no distress. She has been fairly adamant about wishing to be discharged tomorrow. She lives in [facility]. Due to the distance to travel and with the inadvertent removal of this chest tube by other than a controlled condition, I recommended thoracic vent placement to further relieve this right apical pneumothorax and also to allow for outpatient management. Rationale was carefully discussed with her. All questions answered. Appropriate consents have been reviewed and signed. Procedure: After careful positioning, Ms. Elena received slow IV administration of a total of 4 mg of morphine and 30 mg of Toradol with continuous monitoring of heart rate, blood pressure, EKG, and O2 saturation. Her right anterior chest wall was then sterilely prepped and draped. 1% lidocaine was infiltrated in the mid clavicular line over the second intercostal space. A #11 scalpel blade was used to incise the skin. Next, a trocar 13 Omani thoracic vent was inserted through the incision and then by direct firm and controlled pressure into the right pleural space where the vent was advanced over the trocar as it was removed. The vent was secured to the skin with adhesive tabs and also with 2-0 silk suture. The vent was then connected to Pleur-evac suction where further air was evacuated. She tolerated this quite well with only brief modest discomfort. Vital signs remained stable throughout the procedure. O2 saturation 100% on 2 L nasal cannula. 2-0 silk suture was utilized to further secure the thoracic vent in position. Dressings were secured. There is a small intermittent air leak noted to Pleur-evac suction. Chest x-ray reveals a smaller apical pneumothorax with the lung otherwise clear. The thoracic vent tubing is directed toward the apex. She will be returned to her traore in stable condition.
[2019-07-27] MEDS: HYDROcodone-acetaminophen 5-325 mg Tablet 1 TAB PO (16:28)
[2019-07-28] VITALS (8 sets, daily range): BP systolic 94–109; BP diastolic 60–69; PULSE 51–64; RESP 15–20; TEMP 36.5–36.8; O2SAT 87–99
[2019-07-28] MEDS: HYDROcodone-acetaminophen 5-325 mg Tablet 1 TAB PO ×2 (00:18→05:58)
[2019-07-28] MEDS: ketorolac 30 mg/mL INJ IVP ×2 (02:34→09:00)
--- NOTE | 2019-07-28 06:00 | XR_ITS ---
WS: [id number] XR chest 1V portable [id number] REASON FOR EXAM: s/p thoracic vent replacement of dislodged chest tube FINDINGS: Improved subcutaneous emphysema. The right lung is improved aeration since insertion of the thoracic vent. Postop changes across the s kin are seen. XR/XR chest 1V portable [id number] IMPRESSION: Improving subcutaneous emphysema and pneumothorax on the right.
[2019-07-28] MEDS: ipratropium-albuterol 3 mL Neb INHALATION (08:31)
[2019-07-28] MEDS: pantoprazole DR 40 mg Tablet PO (09:00)
--- NOTE | 2019-07-28 09:17 | PC.NURSE ---
SDE Dr Mera removed epidural from pt back. Pt tolerated it well. SDE stopped.
--- NOTE | 2019-07-28 09:18 | P.DS_ITS ---
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 New progressive RUL apical cavitary lesion with increased activity on PET. Hospital Course Hospital Course: Ms. Elena needed for planned right lung biopsy. 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 She developed a right lower lobe solitary nodule with low PET activity though she did have an upper lobe increasing cavitary lesion as well which did have enhancement peripherally on PET scan. Surgery revealed that the lower lobe lesion was a granuloma. The right upper lobectomy specimen has returned cavitary abscess without evidence for malignancy. She initially convalesced in the ICU where she did quite well. She did have a moderate air leak which is slowly dissipated. She was transferred to the traore but her chest tube inadvertently became dislodged and completely out. She remained quite stable with this though she did have an apical pneumothorax. She has been very anxious and eager to be discharged. As she lives in [place], which is quite a distance from a hospital, I did recommend placement of a thoracic vent to allow for management of this apical pneumothorax as an outpatient. This was done yesterday afternoon with resolution of the pneumothorax. She has no air leak this morning. She was removed from Pleur-evac drainage. O2 saturation at rest on 2 L nasal cannula is 94 to 96%, however at rest without oxygen it is 90%. With ambulation O2 saturation decreased to 86%. Therefore, I have recommended home O2 at 2 L nasal cannula. She will be scheduled for follow-up in my clinic in 1 week with a chest x-ray. At the time of discharge, she is in stable condition. Physical Exam Resp: COMMON NORMALS: normal respiratory effort EFFORT & INSPECTION: Yes able to speak in complete sentences and Yes symmetric chest movement AUSCULTATION: diminished lung sounds on the right in the lower lung agee OTHER: chest tube incision and drain site clean. Mild drainage from chest tube site at area where chest tube was inadvertantly pulled out. No evidence for infection. Epidural catheter removed and site is clean. Cardio: COMMON NORMALS: regular rate, regular rhythm, S1 normal heart sound, no murmurs and no rub RATE: regular rate RHYTHM: regular rhythm HEART SOUNDS: S1 normal Urinary Catheter Management^: Felipe: Cath Placed During This Visit: yes, but has since been removed by the nurse Reason for Continuing Indwelling Catheter: Not indwelling catheter Urinary Catheter Date of Insertion: 07/24/19 Urinary Catheter Time of Insertion: 10:20 Date Urinary Catheter Removed: 07/27/19 Time Urinary Catheter Discontinued: 08:00 Discharge Data Data Completed and Pending: Completed Studies During Hospitalization Category Date Time Status CXRP [XR chest 1V portable [id number]] S tat Exams 07/27/19 14:46 Completed XR chest 1V fátima ble [id number] Routine Exams 07/25/19 06:00 Completed XR chest 1V fátima ble [id number] Routine Exams 07/26/19 07:00 Completed XR chest 1V fátima ble [id number] Routine Exams 07/27/19 06:00 Completed XR chest 1V fátima ble [id number] Routine Exams 07/27/19 15:20 Completed XR chest 1V fátima ble [id number] Routine Exams 07/28/19 06:00 Completed XR chest 1V fátima ble [id number] Stat Exams 07/24/19 14:47 Completed Pending at discharge Category Date Time Status Pathology: Frozen Section [PTH] Sta t Pth 07/24/19 11:36 Received Pathology: Surgic al [PTH] Routine Pth 07/24/19 11:36 Received Labs from last 24 hours 07/20/19 10:10 Crossmatch See Detail Vitals: Last Vital Signs Temp 97.8 F 07/28/19 07:37 Pulse 64 07/28/19 09:12 Resp 18 07/28/19 08:32 BP 101/63 07/28/19 07:37 Pulse Ox 90 07/28/19 09:05 Discharge Plan Discharge Patient Disposition: Home, Self-Care Condition: Stable Prescriptions: New hydrocodone-acetaminophen 5-325 mg Tablet 1 tab PO Q6H PRN (Reason: Moderate Pain) Qty: 30 RF: 0 Continued Breo Ellipta 100-25 mcg/dose blister with device 1 inh INHALATION QDAY RF: 0 ipratropium-albuterol 0.5 mg-3 mg(2.5 mg base)/3 mL solution for nebulization 3 ml INHALATION QID PRN (Reason: sob) RF: 0 albuterol sulfate [Ventolin HFA] 90 mcg/actuation Hfa Aerosol Inhaler 1 inh INHALATION QID PRN (Reason: Dyspnea) RF: 0 Discharge Orders: Discharge Order (Routine); Ordered 07/28/19 Ordered By: Jose Mera Referrals: Jose Mera MD [Physician] - 08/03/19 8:00 am (portable CXR on day of and prior to clinic visit to see me next week ,CHECK IN ADMISSION FOR CHEST EXRAY BEFORE APPOINTMENT WITH DR MERA) Shannan Ewing, [employer] [Primary Care Provider] - 08/08/19 10:00 am Discharge Diet: Usual diet Discharge Activity: Limit activity as instructed Patient Instructions: Hydrocodone/Acetaminophen (By mouth), Lung Lobectomy (DC) Activity Restrictions/Additional Instructions: No shower, swimming, or tub baths until chest vent is out. Please remember to get your chest x-ray on day of clinic visit but before you come to clinic to see Dr. Mera. Remember to wear your oxygen with a full tank when you come for your clinic visit Use incentive spirometer frequently. No heavy lifting or pulling. Wear oxygen as much as possible. Call home health nurse for any concerns such as shortness of breath, drainage on bandages, fever Call your oxygen supplier for any concerns about the oxygen system. Discharge Attestations Time Spent in Discharge Care*: less than 30 min Specific Discharge Activities: Specific discharge activities: educating patient, educating and/or supporting family/caregiver, discussing with comp field case manager/social workers/dc planners and evaluating patient/reviewing data Time Spent in Smoking Cessation: Time spent discussing smoking cessation with patient: 3 to 10 minutes Status at Discharge: Cognitive status at discharge: cognitively intact , Behavioral status at discharge: cooperative , Functional status at discharge: other (will need home oxygen 2L/nc) Quality Metrics Clinical Quality Measures During this hospital stay, did patient experience: None Coding Level of Care Code Acute Windows Vmware Engineer for Rony Jackson Diagnoses Status post lobectomy of lung Z90.2
== END 2019-07-28 13:42 | disposition home or self-care (01) | DRG 164 ==
LOC: ICU 14:41 → MEDSURG 07-27 03:14
PROVIDERS: Admitting Provider Thoracic Surgery (Cardiothoracic Vascular Surgery); Family Provider Nurse Practitioner Family; PCP Nurse Practitioner Family; Visit Provider Thoracic Surgery (Cardiothoracic Vascular Surgery)
PROC: 0BTC0ZZ Resection of Right Upper Lung Lobe, Open Approach (ICD-10-PCS; principal; 2019-07-24 09:30)
PROC: 0B9P30Z Drainage of Left Pleura with Drainage Device, Percutaneous Approach (ICD-10-PCS; CPT 32551; principal; 2019-07-27 14:30)
DX: R91.8 Other nonspecific abnormal finding of lung field (principal); L02.818 Cutaneous abscess of other sites; T85.628A Displacement of other specified internal prosthetic devices, implants and grafts, initial encounter; J95.811 Postprocedural pneumothorax; Z85.21 Personal history of malignant neoplasm of larynx; Z92.3 Personal history of irradiation; J84.10 Pulmonary fibrosis, unspecified; R06.03 Acute respiratory distress; Y69 Unspecified misadventure during surgical and medical care; Y92.230 Patient room in hospital as the place of occurrence of the external cause; F17.210 Nicotine dependence, cigarettes, uncomplicated; J44.9 Chronic obstructive pulmonary disease, unspecified
CPT/HCPCS: 12345; 36415; 51702; 71045; 80048; 80053; 81003; 85025; 85610; 86850; 86900; 86920; 88307; 88309; 94640; 96374; 96375; J0690; J1885; J2001; J2250; J2270; J2405; J2704; J2710; J2795; J3010; J3370; J3490; J7030; J7611; J7644

== ENCOUNTER 2019-08-02 07:48 | Outpatient (CLI) | payer MEDICAID, SELFPAY ==
--- NOTE | 2019-08-02 07:51 | CT_ITS ---
WS: [id number] CT NECK WITH CONTRAST HISTORY: NEOPLASM OF UNCERTAIN BEHAVIOR OF LARYNX TECHNIQUE: Contiguous 5 mm axial images are performed through the neck with intravenous contrast. Sag ittal and coronal reformats are also submitted. All CT scans at [facility] use at least o ne of these dose optimization techniques: automated exposure control; mA and/or kV adjustment per pat ient size (includes targeted exams where dose is matched to clinical indication); or iterative recons truction. CONTRAST: CONTRAST: Omnipaque 300; 95 mL IV. DLP: 2049.66 mGycm COMPARISON: 06/16/2019, 01/05/2019, PET/CT 06/10/2019. Status post treatment for laryngeal neoplasm. No significant asymmetry noted involving the torus tuba rius or the parapharyngeal fat. Tongue base is negative. Epiglottis and larynx are negative for recur rent or new tumor. No cervical chain adenopathy. No significant level II adenopathy. Thyroid gland and salivary glands are normally enhancing with no masses. Mild degenerative changes throughout the cervical spine. Visualized portions of the skull base demonstrate no abnormalities. Orbits and globes are within norm al limits. No soft tissue masses. Visualized paranasal sinuses and mastoid air cells are normal. Severe emphysematous changes at the lung apices. Since the prior examination small bore chest tube lovell s been placed in the RIGHT upper pleural space. There is a small residual loculated pneumothorax at t he medial RIGHT upper thorax and a small amount of adjacent pleural fluid. Previously described necro tic appearing neoplasm is no longer present. There are several lymph nodes at the RIGHT hilum measuri ng up to 1 cm which were also present on 01/05/2019. These lymph nodes appear slightly necrotic and we re suspicious on the prior PET/CT. CT/CT neck w con* [id number] IMPRESSION: 1. No recurrent neck mass or adenopathy. No laryngeal or supraglottic neoplasm . 2. Interval resection of the necrotic neoplasm RIGHT upper lobe since 06/16/2019 with a small bore chest tube now present. 3. Small residual RIGHT apical pneumothorax and a small residual pleural effus ion which is loculated. 4. Poorly prominent RIGHT hilar lymph nodes. These lymph nodes were suspicious on the recent PET/CT for metastatic disease.
[2019-08-02] MEDS: iohexol 300 mg/mL 100 mL Btl IV (08:24)
== END 2019-08-02 07:49 | disposition home or self-care (01) ==
PROVIDERS: Family Provider Nurse Practitioner Family; PCP Nurse Practitioner Family; Visit Provider Otolaryngology
DX: D38.0 Neoplasm of uncertain behavior of larynx (principal); J93.83 Other pneumothorax; J90 Pleural effusion, not elsewhere classified
CPT/HCPCS: 70491; Q9967

== ENCOUNTER 2019-08-07 10:01 | Outpatient (CLI) | payer MEDICAID, SELFPAY ==
--- NOTE | 2019-08-07 10:12 | XR_ITS ---
WS: [id number] CHEST, 1 view. HISTORY: FOLLOWUP CXR COMPARISON: 07/28/2019 Small bore RIGHT chest tube. Surgical galina are noted over the lower RIGHT thorax. Multiple surgica l sutures over the RIGHT thorax. There is volume loss on the RIGHT. Overall improved aeration. No pne umothorax. Resolved RIGHT subcutaneous emphysema. LEFT lung is clear. No pleural effusion or pneumothorax. Cardiac size: Normal. Mediastinum/Aorta: Normal mediastinum. No osseous abnormality seen. XR/XR chest 1V [id number] IMPRESSION: 1. Volume loss and postsurgical changes in the RIGHT thorax. 2. Improved aeration RIGHT lung with elevation of the RIGHT hemidiaphragm and pleural thickening persisting. 3. RIGHT smallbore chest tube. 4. Resolved subcutaneous emphysema.
== END 2019-08-07 10:02 | disposition home or self-care (01) ==
LOC: RAD 10:05
PROVIDERS: Family Provider Nurse Practitioner Family; PCP Nurse Practitioner Family; Visit Provider Thoracic Surgery (Cardiothoracic Vascular Surgery)
DX: Z90.2 Acquired absence of lung [part of] (principal); Z97.8 Presence of other specified devices
CPT/HCPCS: 71045

== ENCOUNTER 2020-08-29 07:49 | Outpatient (CLI) | payer MEDICARE, MEDICAID, SELFPAY ==
--- NOTE | 2020-08-29 07:58 | CT_ITS ---
WS: [id number] CT CHEST WITH INTRAVENOUS CONTRAST HISTORY: LUNG MASS TECHNIQUE: Contiguous 5 mm axial imaging performed on the thorax. Coronal and sagittal reformats are submitted. All CT scans at [facility] use at least one of these dose optimization techniq ues: automated exposure control; mA and/or kV adjustment per patient size (includes targeted exams wh ere dose is matched to clinical indication); or iterative reconstruction. CONTRAST: Omnipaque 300; 95 mL IV. DLP: 770.96 mGycm COMPARISON: 05/05/2019 and chest radiograph 08/07/2019 Lungs and central airway: Mild volume loss and postsurgical changes in the RIGHT thorax. By history p atient's undergone a prior upper lobectomy. Surgical sutures are noted at the RIGHT hilum. The previo usly described RIGHT upper lobe necrotic nodule is no longer present. Also the round nodule in the pe riphery of the RIGHT lower lobe is no longer present. There is adjacent scarring suggesting surgical removal. There is some very mild interstitial thickening in the periphery of the RIGHT lower lobe. Th ere is very slight herniation of the lung external to the thorax between the intercostal muscles whic h is probably the surgical site which is weakened. Mildly hyperexpanded LEFT lung. No new mass. Pleura: No effusions. Heart and pericardium: Normal size heart with no pericardial effusion. Mediastinum and marika: There are several indeterminate lymph nodes at the RIGHT hilum and along the pr oximal RIGHT lower lobe bronchi measuring up to 10 mm in diameter. Vessels: Pulmonary artery size is slightly enlarged, greater than the aorta diameter. Chest wall and lower neck: No soft tissue masses. Upper abdomen: Prior cholecystectomy. No adrenal mass. The visualized liver is normal. Osseous structures: No destructive process. CT/CT chest w con* [id number] IMPRESSION: 1. Partial RIGHT upper lobectomy. 2. Previously described nodules in the RIGHT upper lobe and RIGHT lower lobe a re no longer present. Postsurgical areas of scarring are now present. 3. Mild interstitial thickening in the periphery of the RIGHT lower lobe at th e site of the previously described subpleural mass. No interval CT since 2018. 4. Indeterminate RIGHT hilar and proximal RIGHT lower lobe lymph nodes measuri ng up to 10 mm. 5. Recommend short-term follow-up chest CT, 3 months with IV contrast. Indeter minate lymph nodes in the RIGHT thorax need to be reevaluated along with the in terstitial thickening in the periphery of the RIGHT lower lobe. There are no pr ior comparison examinations to document stability. Most recent chest CT for yuli peters is 05/05/2019 and a prior PET/CT from 06/10/2019.
[2020-08-29] MEDS: iohexol 300 mg/mL 100 mL Btl IV (08:29)
== END 2020-08-29 07:50 | disposition home or self-care (01) ==
PROVIDERS: PCP Nurse Practitioner Family; Visit Provider Nurse Practitioner Family
DX: R91.8 Other nonspecific abnormal finding of lung field (principal); Z90.2 Acquired absence of lung [part of]
CPT/HCPCS: 71260; Q9967

== ENCOUNTER 2020-09-27 13:16 | Outpatient (CLI) | payer MEDICARE, MEDICAID, SELFPAY ==
--- NOTE | 2020-09-27 13:39 | CT_ITS ---
WS: [id number] CT scan of the chest with IV contrast, additional two-dimensional coronal and sagittal reconstruction was performed. 09/27/2020 Clinical Data: ABNORMAL FINDINGS OF LUNG FIELD Comparison: CT chest, 08/29/2020. DLP: 866.[address] scans at [facility] use at least one of these dose optimization techniques: automat ed exposure control; mA and/or kV adjustment per patient size (includes targeted exams where dose is matched to clinical indication); or iterative reconstruction. Findings: No nodules, masses or effusions are seen. The patient has had a right upper lobectomy. There is perip heral scarring in the right upper lobe with bulging of the pleura beyond the confines of the ribs on the right. There is right hilar scarring. No recurrent nodules are seen. No pneumonia or pneumothorax is seen. There are no effusions. The heart size is normal with no pericardial effusion. The pulmonar y arterial system and thoracic aorta demonstrate no abnormalities or dilatations. The trachea bifurca rosaura normally into the bronchi. There is no axillary or significant mediastinal adenopathy. The upper abdomen demonstrates a cholecystectomy. There is no change from before. There are small rig ht renal cortical cysts. The bony thorax demonstrates no metastatic lesions. CT/CT chest w con* [id number] Impression: 1. Right upper lobectomy with scarring in the right hilum and right upper lung periphery unchanged. 2. Negative for recurrent mass or metastatic nodules.
[2020-09-27] MEDS: iohexol 300 mg/mL 100 mL Btl IV (14:02)
== END 2020-09-27 13:17 | disposition home or self-care (01) ==
PROVIDERS: PCP Nurse Practitioner Family; Visit Provider Nurse Practitioner Family
DX: R91.8 Other nonspecific abnormal finding of lung field (principal)
CPT/HCPCS: 71260; Q9967

== ENCOUNTER 2020-10-21 13:25 | Outpatient (CLI) | payer MEDICARE, MEDICAID, SELFPAY ==
--- NOTE | 2020-10-21 13:34 | MM_ITS ---
WS: [id number] Exam: [id number] Date/Time of Exam: 10/21/2020 1:38 PM Reason For Exam: SCREENING VIEWS: MLO and CC views both breasts. Comparison made with prior exam of 05/05/2019. Findings: There was no sign of mass, architectural distortion or suspicious calcification in either breast. Sc attered fibroglandular densities MM/[place] [id number] Impression: BI-RADS: 2-Benign FOLLOW-UP: 1 Year Follow-up This mammogram was also analyzed by the Computer Aided Detection System R2 Imag e Electric Melt Operator.
== END 2020-10-21 13:26 | disposition home or self-care (01) ==
LOC: RADSHAW 13:31
PROVIDERS: PCP Nurse Practitioner Family; Visit Provider Nurse Practitioner Family
DX: Z12.31 Encounter for screening mammogram for malignant neoplasm of breast (principal)
CPT/HCPCS: 77067

== ENCOUNTER → 2020-11-15 14:57 | Outpatient (BNVA) | payer MEDICARE, MEDICAID, SELFPAY | PROVIDERS: PCP Nurse Practitioner Family; Visit Provider Internal Medicine Pulmonary Disease | DX: Z20.822 Contact with and (suspected) exposure to COVID-19 (principal) | CPT/HCPCS: 87635 ==

== ENCOUNTER 2021-02-14 09:40 | Outpatient (CLI) | payer MEDICARE, MEDICAID, SELFPAY ==
--- NOTE | 2021-02-14 10:15 | CT_ITS ---
WS: [id number] CT CHEST WITHOUT INTRAVENOUS CONTRAST HISTORY: lung mass TECHNIQUE: Contiguous 5 mm axial imaging performed on the thorax. Coronal and sagittal reformats are submitted. All CT scans at [facility] use at least one of these dose optimization techniques: automated exposure control; mA and/or kV adjustment per patient size (includes targeted exams where dose is matched to clinical indication); or iterative reconstruction. CONTRAST: None DLP: 752.57 mGycm COMPARISON: 09/27/2020 Lungs and central airway: Status post partial RIGHT upper lobectomy. Postoperative changes with scarr ing beginning at the RIGHT hilum and extending towards the periphery. No new pulmonary nodule or mass . Postoperative changes are stable. Pleura: Normal. No pleural effusion. Heart and pericardium: Normal size heart with no pericardial effusion. Mediastinum and marika: No mediastinum or hilar adenopathy. Vessels: Mild atherosclerosis aorta. Slightly enlarged pulmonary artery is stable. Chest wall and lower neck: No soft tissue masses. Upper abdomen: Prior cholecystectomy. No adrenal mass. Paravertebral nodule on the LEFT at the level of the adrenal gland has been stable over multiple prior studies. Osseous structures: Splaying of the ribs in the RIGHT lateral thorax herniation of lung beyond the ri b secondary to muscular weakening. No interval change. CT/CT chest wo con [id number] IMPRESSION: 1. Status post partial RIGHT upper lobectomy. Postsurgical changes and scarrin g are stable. 2. No recurrent mass or nodule or adenopathy identified. 3. Prior cholecystectomy.
== END 2021-02-14 09:41 | disposition home or self-care (01) ==
PROVIDERS: PCP Nurse Practitioner Family; Visit Provider Internal Medicine Pulmonary Disease
DX: R91.8 Other nonspecific abnormal finding of lung field (principal); Z90.49 Acquired absence of other specified parts of digestive tract; Z90.2 Acquired absence of lung [part of]
CPT/HCPCS: 71250

== ENCOUNTER → 2021-06-18 09:00 | Outpatient (BNVA) | payer MEDICARE, MEDICAID, SELFPAY | PROVIDERS: PCP Nurse Practitioner Family; Visit Provider Internal Medicine Pulmonary Disease | DX: J43.2 Centrilobular emphysema (principal); Z20.822 Contact with and (suspected) exposure to COVID-19 | CPT/HCPCS: 87635 ==

== ENCOUNTER 2021-06-24 12:28 | Outpatient (CLI) | payer MEDICARE, MEDICAID, SELFPAY ==
--- NOTE | 2021-06-24 13:30 | PFTS_ITS ---
Date of Study:06/24/21 Date of Dictation: 06/24/2021 MECHANICS: Post bronchodilator forced vital capacity (FVC) is normal. Post bronchodilator forced expiratory volume in one second (FEV1) is severely reduced 45 % FEV1/FVC is reduced. There is significant response to bronchodilators. FLOW VOLUME LOOP: Sloping of expiratory limb suggestive of severe airway obstruction . LUNG VOLUMES: Total lung capacity (TLC) is increased. Residual volume (RV) is increased suggestive of severe air trapping DIFFUSING CAPACITY FOR CARBON MONOXIDE: Mildly reduced 65% . INTERPRETATION: The post bronchodilator spirometry is consistent with severe obstruction. There is significant response to bronchodilators. Lung volumes suggestive of severe air trapping. Gas transfer is mildly reduced 65% Constellation of findings consistent with significant obstructive ventilatory disease with decreased gas transfer can be seen in entities like emphysema. Please correlate clinically. MTDD
== END 2021-06-24 12:29 | disposition home or self-care (01) ==
LOC: RT 12:30
PROVIDERS: PCP Nurse Practitioner Family; Visit Provider Internal Medicine Pulmonary Disease
DX: J44.9 Chronic obstructive pulmonary disease, unspecified (principal)
CPT/HCPCS: 94060; 94618; 94726; 94729; J7611

== ENCOUNTER → 2021-07-31 09:50 | Outpatient (BNVA) | payer MEDICARE, MEDICAID, SELFPAY | PROVIDERS: PCP Nurse Practitioner Family; Visit Provider Nurse Practitioner Family | DX: R06.00 Dyspnea, unspecified (principal); I28.8 Other diseases of pulmonary vessels; F17.210 Nicotine dependence, cigarettes, uncomplicated; J44.9 Chronic obstructive pulmonary disease, unspecified | CPT/HCPCS: 99214 ==

== ENCOUNTER → 2021-10-15 07:58 | Outpatient (BNVA) | payer MEDICARE, MEDICAID, SELFPAY | PROVIDERS: PCP Nurse Practitioner Family; Visit Provider Specialist | DX: G56.03 Carpal tunnel syndrome, bilateral upper limbs (principal); G56.22 Lesion of ulnar nerve, left upper limb | CPT/HCPCS: 95909; 95910 ==

== ENCOUNTER → 2021-10-30 09:04 | Outpatient (BNVA) | payer MEDICAID, SELFPAY | PROVIDERS: PCP Registered Nurse; Visit Provider Nurse Practitioner Family | DX: J43.2 Centrilobular emphysema (principal); F17.210 Nicotine dependence, cigarettes, uncomplicated; Z71.6 Tobacco abuse counseling; Z85.21 Personal history of malignant neoplasm of larynx; Z90.2 Acquired absence of lung [part of]; R06.00 Dyspnea, unspecified | CPT/HCPCS: 99213; 99214 ==

== ENCOUNTER 2021-12-05 11:02 | Outpatient (CLI) | payer MEDICARE, MEDICAID, SELFPAY ==
--- NOTE | 2021-12-05 11:00 | USCV_ITS ---
Yarely Elena Age: 56 Gender: F : 1965 Exam Date: 12/05/2021 11:13 Ordering Phys: Kenya Garcia Technologist: DOMENICO Exam Location: [facility] [place] Indication: sob BP: 122 / 68 HR: 64 Rhythm: Sinus Technical Quality: MEASUREMENTS (Male / Female) Normal Values 2D ECHO LV Diastolic Diameter PLAX 4.0 cm 4.2 - 5.9 / 3.9 - 5.3 cm LV Systolic Diameter PLAX 2.1 cm IVS Diastolic Thickness 1.0 cm 0.6 - 1.0 / 0.6 - 0.9 cm IVS Systolic Thickness 1.2 cm LVPW Diastolic Thickness 1.1 cm 0.6 - 1.0 / 0.6 - 0.9 cm LVPW Systolic Thickness 1.5 cm LVOT Diameter 2.0 cm LV Ejection Fraction 2D Teich 79.2 % LV Ejection Fraction MOD 2C 63.1 % LV Ejection Fraction 2C AL 64.5 % LA Diameter 2.6 cm Aorta at Sinotubular Diameter 3.0 cm M-MODE Aortic Annulus Diameter 2.6 cm LA Ao Ratio MM 1.0 MV E Point Septal Separation 0.3 cm DOPPLER AV Peak Velocity 99.0 cm/s LVOT Peak Velocity 84.0 cm/s AV Area Cont Eq vti 2.7 cm squared AV Area Cont Eq pk 2.7 cm squared MV Area PHT 3.1 cm squared Mitral E to A Ratio 1.0 MV E' Velocity 38.0 cm/s Mitral E to MV E' Ratio 8.3 Mitral E to LV E' Lateral Ratio 7.9 Mitral E to LV E' Septal Ratio 8.9 TR Peak Velocity 303.0 cm/s TR Peak Gradient 36.7 mmHg Right Atrial Pressure 5.0 mmHg Pulmonary Artery Systolic Pressu 41.7 mmHg PV Peak Velocity 79.0 cm/s FINDINGS Left Ventricle Normal left ventricular size, systolic function and wall thickness, with no regional wall motion abnormalities. Normal left ventricular wall thickness. Normal diastolic filling pattern. Left ventricular ejection fraction is estimated at 64 %. Right Ventricle The right ventricle is normal in size and function. Right Atrium The right atrium is normal in size. Left Atrium The left atrium is normal in size. Mitral Valve Structurally normal mitral valve without significant stenosis or prolapse. There is no mitral regurgitation. Aortic Valve Structurally normal aortic valve without significant sclerosis or stenosis. There is no aortic regurgitation. Tricuspid Valve Structurally normal tricuspid valve without significant stenosis or regurgitation. Pulmonary artery systolic pressure is normal. Pulmonic Valve Structurally normal pulmonic valve without significant stenosis. There is no pulmonic regurgitation. Pericardium Normal pericardium without effusion. Aorta Normal ascending aorta dimension. IVC The inferior vena cava pulmonary and hepatic veins appear normal. CONCLUSIONS Normal transthoracic echocardiogram. Dr. Yordan Weber MD (Electronically Signed) Final Date: 05 December 2021 14:54 S
== END 2021-12-05 11:03 | disposition home or self-care (01) ==
LOC: RAD 11:03
PROVIDERS: PCP Registered Nurse; Visit Provider Nurse Practitioner Family
DX: I28.8 Other diseases of pulmonary vessels (principal); R06.00 Dyspnea, unspecified; R06.02 Shortness of breath
CPT/HCPCS: 93306

== ENCOUNTER → 2021-12-30 10:06 | Outpatient (BNVA) | payer MEDICARE, MEDICAID, SELFPAY | PROVIDERS: PCP Registered Nurse; Visit Provider Internal Medicine Cardiovascular Disease | DX: R06.00 Dyspnea, unspecified (principal); I28.8 Other diseases of pulmonary vessels; F17.210 Nicotine dependence, cigarettes, uncomplicated; Z90.2 Acquired absence of lung [part of] | CPT/HCPCS: 99214 ==

== ENCOUNTER 2022-01-16 20:40 | Emergency (ER) | payer MEDICARE, MEDICAID, SELFPAY ==
[2022-01-16 20:40] VITALS: BP 112/75; PULSE 52; RESP 16; TEMP 36.6; O2SAT 96; BMI 28.3
--- NOTE | 2022-01-16 20:42 | XRR_ITS ---
PROCEDURE INFORMATION: Exam: XR Chest Exam date and time: 01/16/2022 9:05 PM Age: 56 years old Clinical indication: Angina; Additional info: Cp TECHNIQUE: Imaging protocol: Radiologic exam of the chest. Views: 1 view. COMPARISON: CT chest wo con [id number] 02/14/2021 10:09 AM FINDINGS: Lungs: Linear scarring versus bronchiectasis medial left lung base is unchanged. The lungs are hyperinflated but clear. No new airspace consolidation. Pulmonary vascularity is within normal limits. Pleural spaces: Unremarkable. No pleural effusion. No pneumothorax. Heart/Mediastinum: Unremarkable. No cardiomegaly. Bones/joints: The postoperative changes of partial right pneumonectomy with multiple right rib deformities, multiple suture lines and scarring in the mid to lower right lung is unchanged. XR/XR chest 1V portable [id number] IMPRESSION: 1. The postoperative changes of partial right pneumonectomy with multiple right rib deformities, multiple suture lines and scarring in the mid to lower right lung is unchanged. 2. No active pulmonary disease. Chronic findings are unchanged.
--- NOTE | 2022-01-16 20:44 | ECG_ITS ---
[facility] Test Date: 2022-01-16 Pat Name: Yarely Elena Department: Room: Gender: Female Marketing Services Coordinator: : 1965 Requested By: Stanley David Order Number: [id number] Janel MD: Elbert Ford M.D. Measurements Intervals [place] Rate: 51 P: 69 [place]: 160 QRS: 53 QRSD: 102 T: 67 QT: 432 QTc: 400 Interpretive Statements SINUS BRADYCARDIA INDETERMINATE AXIS INCOMPLETE RIGHT BUNDLE BRANCH BLOCK [90+ ms QRS DURATION, TERMINAL R IN V1/V2, 40+ ms S IN I/aVL/V4/V5/V6] Compared to ECG 07/05/2019 06:10:21 Indeterminate axis now present Electronically Signed On 01-18-2022 13:23:00 CDT by Elbert Ford M.D. [id number]
[2022-01-16 21:04] LABS: Basophils % 0.6 %; Eosinophils # 0.1 10^3/uL (0.0-0.8); Eosinophils % 1.6 %; Hemoglobin 13.8 g/dL (11.5-15.3); Lymphocytes # 1.7 10^3/uL (0.8-4.8); Lymphocytes % 24.6 %; Mean Corpuscular HGB Conc 32.9 g/dL (30.0-36.0); Mean Corpuscular Hemoglobin 30.7 pg (28.0-34.0); Mean Corpuscular Volume 93.3 fl (81-99); Mean Platelet Volume 9.8 fL (7.4-10.4); Monocytes # 0.5 10^3/uL (0.2-0.9); Monocytes % 7.1 %; Neutrophils # 4.63 10^3/uL (1.8-7.7); Neutrophils % 65.7 %; Nucleated Red Blood Cells % 0 %; Platelet Count 259 10^3/cmm (130-400); Red Cell Distribution Width 12.7 % (12.1-15.1)
[2022-01-16 21:32] LABS: Troponin(5th) Baseline 7 ng/L (0-10)
[2022-01-16 21:41] LABS: Alanine Aminotransferase 23 U/L (0-33); Albumin Level 4.2 g/dL (3.5-5.2); Alkaline Phosphatase 91 U/L (35-105); Anion Gap 13.1 (5-19); Aspartate Amino Transferase 24 U/L (0-32); Blood Urea Nitrogen 11 mg/dL (6-20); Calcium 9.4 mg/dL (8.5-10.5); Carbon Dioxide 28 mmol/L (22-29); Chloride 102 mmol/L (98-107); Globulin 3.2 g/dL (1.3-4.6); Glomerular Filtration Rate 73.7 mL/min (90-130); Glucose 104 mg/dL (65-115); NT Pro B Type Natriuretic Pept 23 pg/mL (0-125); Osmolality Calculated 288 mOsm/kg (285-295); Potassium 4.1 mmol/L (3.5-5.1); Sodium 139 mmol/L (136-145); Total Bilirubin 0.7 mg/dL (0.15-1.2); Total Protein 7.4 g/dL (6.6-8.7)
[2022-01-16 22:35] VITALS: BP 117/76; PULSE 59; RESP 16
[2022-01-16 23:08] LABS: Troponin 5 2HR 6.39 ng/L (0-10)
--- NOTE | 2022-01-16 23:15 | ED_ITS ---
HPI - Chest Pain General: Chief Complaint: Chest Pain Stated Complaint: CP Time Seen by Provider: 01/16/22 22:30 History of Present Illness: Patient is a 56-year-old female comes to the ED with chest pain. Patient has a history of COPD and has had lobectomy of lung. She has been on oxygen at home in the past but is not currently on any oxygen and his inhalers at home. Patient says she experienced chest pain while at rest several hours prior to arrival. She states she was sitting down and then developed sharp chest pain in the center of her chest and was diaphoretic. She says symptoms only lasted for approximately an hour. The time she arrived in the ED she has not had any more reoccurring chest pain. Here in the ED she feels normal denies any chest pain. Denies any acute change in shortness of breath and says her current shortness of breath is chronic. Patient reports seeing welding pantograph operator and senior rd engineer as well. Associated symptoms: Deny abdominal pain, dyspnea, fever(s), nausea, palpitations or vomiting Review of Systems Const: Denies: fever(s), chills or fatigue Eyes: Denies: change in vision or eye discomfort ENMT: Denies: throat pain, odynophagia, nasal discharge or nasal congestion Card: Reports: chest pain; Denies: palpitations, edema, swelling of feet/ankles, dyspnea on exertion or orthopnea Resp: Denies: dyspnea, productive cough or non-productive cough GI: Denies: abdominal pain, nausea, vomiting, diarrhea, constipation or hematochezia : Denies: flank pain, dysuria or hematuria Musc: Denies: neck pain, back pain or extremity swelling Skin/Breast: Denies: rash or new lesions Neuro: Denies: headache(s), numbness in extremities or weakness in extremities PFS ED PFSH: Medical History COPD (chronic obstructive pulmonary disease) History of malignant neoplasm of larynx Lung mass Surgical History H/O tubal ligation S/P cholecystectomy Status post lobectomy of lung pathology returned abscess; no malignancy identified Family History Other Cancer Social History Smoking and tobacco status: current every day smoker cigarettes Packs smoked per day: 1.75 Years cigarettes smoked: 40 Quit status (tobacco): considering quitting Second hand smoke exposure: Yes Smoking risk assessment/counseling performed?: Yes Alcohol intake: never Lives independently: Yes Household members: spouse Marital status: service: No Current occupational status: employed Pets and animals: Yes History of recent travel: No Current gender identity: Female Physical Exam Const: COMMON NORMALS: no acute distress, patient oriented x3 and alert GENERAL APPEARANCE: cooperative and comfortable HENMT: COMMON NORMALS: normocephalic HEAD & SCALP: normocephalic MOUTH: Normal oral and palatal mucosa present THROAT: posterior oropharynx normal and uvula midline Eye: COMMON NORMALS: Equal, round and reactive pupils present and conjunctivae normal CONJUNCTIVA: Yes conjunctivae normal PUPIL: Yes Equal, round and reactive pupils present Neck/C-Spine: COMMON NORMALS: supple GENERAL: Yes normal visual inspection Resp: COMMON NORMALS: normal respiratory effort, No retractions, No use of accessory muscles and clear to auscultation bilaterally AUSCULTATION: clear to auscultation bilaterally Cardio: COMMON NORMALS: regular rate, regular rhythm, S1 normal heart sound present, S2 normal heart sound present, No gallops present (Cardio), No clicks present (Cardio), No murmurs present (Cardio) and Peripheral pulses 2+ throughout RATE: regular rate RHYTHM: regular rhythm HEART SOUNDS: S1 normal heart sound present and S2 normal heart sound present PERIPHERAL PULSES: Peripheral pulses 2+ throughout GI: COMMON NORMALS: Normal to inspection, nondistended, normoactive bowel sounds present, Soft to palpation, non-tender and no masses PALPATION: Yes Soft to palpation : COMMON NORMALS: Yes no CVA tenderness BLADDER/KIDNEY EXAM: Yes no CVA tenderness Back/Pelvis: COMMON NORMALS: no CVA tenderness Neuro: COMMON NORMALS: patient oriented x3 SENSORIUM/ORIENTATION: Yes alert GAIT: Yes Normal gait present Skin: GENERAL SKIN EXAM: dry skin Course Vital Signs: Vital signs: Vital Signs Temperature 97.9 F 01/16/22 20:40 Pulse Rate 60 01/16/22 23:44 Respiratory Rate 16 01/16/22 23:44 Blood Pressure 111/74 01/16/22 23:44 Pulse Oximetry 97 01/16/22 23:44 Oxygen Delivery Me thod 01/16/22 20:40 MDM - Chest Pain Medical Decision Making Patient is a 56-year-old female comes to the ED with chest pain. Past medical h istory of COPD. Patient had episode of sharp chest pain that lasted for 1 hour tonight. By the time she got to the ED her chest pain a completely resolved and she felt normal and it no acute distress or pain. All throughout her time here in the ED she had no reoccurring chest pain. Vitals are stable. Patient appears in no acute distress or pain. Rest of exam is benign. CBC and CMP were unremarkable. Troponins negative. EKG showed no is. Chest x-ray showed postop right pneumonectomy but no acute findings noted. Patient was stable for discharge and ready to go home. She was diagnosed with chest pain. She was told to follow-up with her PCP in the next week for reevaluation. Return ED precautions given. Patient understood agree with plan. Lab Data I reviewed the patient's lab results. : 01/16/22 21:00 01/16/22 21:00 Radiology Impressions Chest X-Ray 01/16/22 20:42 IMPRESSION: 1. The postoperative changes of partial right pneumonectomy with multiple right rib deformities, multiple suture lines and scarring in the mid to lower right lung is unchanged. 2. No active pulmonary disease. Chronic findings are unchanged. Laboratory Results WBC 7.0 10^3/uL (4.0-10.0) 01/16/22 21:00 RBC 4.50 10^6/uL (4.1-5.3) 01/16/22 21:00 Hgb 13.8 g/dL (11.5-15.3) 01/16/22 21:00 Hct 42.0 % (37.0-47.0) 01/16/22 21:00 MCV 93.3 fl (81-99) 01/16/22 21:00 MCH 30.7 pg (28.0-34.0) 01/16/22 21:00 MCHC 32.9 g/dL (30.0-36.0) 01/16/22 21:00 RDW 12.7 % (12.1-15.1) 01/16/22 21:00 Plt Count 259 10^3/cmm (130-400) 01/16/22 21:00 MPV 9.8 fL (7.4-10.4) 01/16/22 21:00 Neut % (Auto) 65.7 % 01/16/22 21:00 Lymph % (Auto) 24.6 % 01/16/22 21:00 [place] % (Auto) 7.1 % 01/16/22 21:00 Eos % (Auto) 1.6 % 01/16/22 21:00 Baso % (Auto) 0.6 % 01/16/22 21:00 Neut # (Auto) 4.63 10^3/uL (1.8-7.7) 01/16/22 21:00 Lymph # (Auto) 1.7 10^3/uL (0.8-4.8) 01/16/22 21:00 [place] # (Auto) 0.5 10^3/uL (0.2-0.9) 01/16/22 21:00 Eos # (Auto) 0.1 10^3/uL (0.0-0.8) 01/16/22 21:00 Baso # (Auto) 0.0 10^3/uL (0.0-0.1) 01/16/22 21:00 Nucleated RBC % (auto) 0 % 01/16/22 21:00 Nucleated RBCs # 0.0 /100WBC 01/16/22 21:00 Sodium 139 mmol/L (136-145) 01/16/22 21:00 Potassium 4.1 mmol/L (3.5-5.1) 01/16/22 21:00 Chloride 102 mmol/L (98-107) 01/16/22 21:00 Carbon Dioxide 28 mmol/L (22-29) 01/16/22 21:00 Anion Gap 13.1 (5-19) 01/16/22 21:00 BUN 11 mg/dL (6-20) 01/16/22 21:00 Creatinine 0.8 mg/dL (0.5-0.9) 01/16/22 21:00 GFR Calculation 73.7 mL/min (90-130) L 01/16/22 21:00 Glucose 104 mg/dL (65-115) 01/16/22 21:00 Calculated Osmolality 288 mOsm/kg (285-295) 01/16/22 21:00 Calcium 9.4 mg/dL (8.5-10.5) 01/16/22 21:00 Total Bilirubin 0.7 mg/dL (0.15-1.2) 01/16/22 21:00 AST 24 U/L (0-32) 01/16/22 21:00 ALT 23 U/L (0-33) 01/16/22 21:00 Alkaline Phosphatase 91 U/L (35-105) 01/16/22 21:00 Troponin T Baseline 7 ng/L (0-10) 01/16/22 21:00 Troponin T 120 Minute 6.39 ng/L (0-10) 01/16/22 22:38 Delta Troponin T -0.61 ABS# (0-10) L 01/16/22 22:38 NT-Pro-B Natriuret Pep 23 pg/mL (0-125) 01/16/22 21:00 Total Protein 7.4 g/dL (6.6-8.7) 01/16/22 21:00 Albumin 4.2 g/dL (3.5-5.2) 01/16/22 21:00 Globulin 3.2 g/dL (1.3-4.6) 01/16/22 21:00 EKG Data EKG 1: EKG interpretation date: 01/16/22 Interpretation: Sinus bradycardia, 51 bpm, no ST segment elevation or depression seen. Discharge Plan Discharge Patient Disposition: Home Clinical Impression: Chest pain Qualifiers: Chest pain type: unspecified Qualified Code(s): R07.9 - Chest pain, unspecified Condition: Stable Prescriptions: No Action atorvastatin 20 mg tablet 20 mg PO DAILY ipratropium bromide 0.02 % solution 2.5 ml inhalation QID PRN beynnrwm-mofbpkg-gewm-lutein Tablet PO albuterol sulfate 2.5 mg /3 mL (0.083 %) solution for nebulization 2.5 mg inhalation Q4H PRN Trelegy Ellipta 100-62.5-25 mcg blister with device 1 inh inhalation DAILY Qty: 60 3RF cholecalciferol (vitamin D3) 25 mcg (1,000 unit) capsule 25 mcg PO DAILY multivitamin Tablet 1 tab PO DAILY albuterol sulfate [Ventolin HFA] 90 mcg/actuation Hfa Aerosol Inhaler 1 inh INHALATION QID PRN (Reason: Dyspnea) Discharge Orders: Discharge ED (Routine); Ordered 01/16/22 Ordered By: James Leary Referrals: Jamir South CPNP [Primary Care Provider] - Discharge Diet: Regular Discharge Activity: Increase activity as tolerated Patient Instructions: Chest Pain (DC) Activity Restrictions/Additional Instructions: Follow-up with medical provider as directed in the next 7 to 10 days for reevaluation. Continue taking all home medications as prescribed. Return to the ER or your medical provider if you have reoccurring chest pain. please read and understand discharge instructions. Thank you for choosing [facility] for your healthcare needs today. Please realize this is an emergency room and that we are providing you with a medical screening exam and this may not be complete and all inclusive of all the testing and or work up that you may need to determine your ailment or severity of your illness. It is very important that you follow up as instructed or that you return to the Emergency Department should you have concerns or if your condition changes or worsens in any way. Coding Level of Care Code ED Organisation And Methods Analyst for Chg Fwd Exam Comprehensive
[2022-01-16 23:44] VITALS: BP 111/74; PULSE 60; RESP 16; O2SAT 97
[2022-01-16 23:49] LABS: Troponin 5 2HR Delta -0.61 ABS# (0-10)
== END 2022-01-16 23:45 | disposition home or self-care (01) ==
PROVIDERS: Emergency Medicine; Emergency Provider Physician Assistant; PCP Registered Nurse
DX: R07.9 Chest pain, unspecified (principal); J44.9 Chronic obstructive pulmonary disease, unspecified; Z85.21 Personal history of malignant neoplasm of larynx; Z90.2 Acquired absence of lung [part of]; F17.210 Nicotine dependence, cigarettes, uncomplicated
CPT/HCPCS: 71045; 80053; 83880; 84484; 85025; 93005; 99285

== ENCOUNTER → 2022-02-09 10:50 | Outpatient (BNVA) | payer MEDICARE, MEDICAID, SELFPAY | PROVIDERS: PCP Registered Nurse; Visit Provider Nurse Practitioner Family | DX: R07.9 Chest pain, unspecified (principal); F17.210 Nicotine dependence, cigarettes, uncomplicated | CPT/HCPCS: 99213; 99214 ==

== ENCOUNTER 2022-02-25 09:52 | Outpatient (CLI) | payer MEDICARE, MEDICAID, SELFPAY ==
--- NOTE | 2022-02-25 | ECG_ITS ---
[facility] Test Date: 2022-02-25 Pat Name: Yarely Elena Department: Room: Gender: Female Building Services Coordinator: : 1965 Requested By: Darby Allan Order Number: [id number] Janel MD: Darby Allan M.D. Interpretive Statements NAME OF STUDY: LEXISCAN SESTAMIBI STRESS TEST INDICATION: Exertional shortness of breath PROCEDURE: At the baseline, the blood pressure was 100/78 mmHg with a heart rate of 55 bpm. The electrocardiogram showed normal sinus rhythm, indeterminate axis. Incomplete right bundle branch block. The Lexiscan was infused over a period of 20 seconds. A total of 0.4 milligrams of Lexiscan was infused. The stress phase was continued for a total of 5 minutes. Heart rate at the end of the stress phase was 83 bpm, oxygen saturation 97% with a blood pressure of 120/67 mmHg. The EKG at the peak infusion revealed sinus rhythm with no significant ST-T wave changes. The study was terminated due to protocol completion. Sestamibi was injected 20 seconds after the Lexiscan infusion. Blood pressure at the end of the recovery phase was 114/67 mmHg with a heart rate of 79 beats per minute. CONCLUSION: 1. No significant EKG changes with the LexiScan infusion. 2. No LexiScan induced chest pain or cardiac arrhythmia. 3. Normal blood pressure and heart rate response. 4. Sestamibi/sestamibi perfusion scan pending; see separate report. Electronically Signed On 02-27-2022 15:14:15 CDT by Darby Allan M.D. [id number]
[2022-02-25 10:09] VITALS: BMI 27.4
--- NOTE | 2022-02-25 10:14 | NMCV_ITS ---
NM vivien perf SPECT r/s* [id number] Yarely Elena Age: 56 Gender: F : 1965 Exam Date: 02/25/2022 10:57 Ordering Phys: Darby Allan MD ([email or web address]) Technologist: SIMON Villatoro Exam Location: [facility] Indications: SHORTNESS OF BREATH STRESS TEST [facility] IMAGE PROTOCOL Rest/Stress 1 Lexiscan Day Radiopharmaceutical Dose (mCi) Administration Site Administered by Rest: Tc-99m 11.0 IV SIMON Moreno Sestamibi Stress:Tc-99m 32.9 IV SIMON Moreno Sestamibi Rest: 25-Feb-2022 60 Discovery 630 Stress: 25-Feb-2022 30 Discovery 630 0.4mg Lexiscan. Images obtained in supine and prone position. SPECT RESULTS Technical Quality: Excellent Raw Data Analysis: Normal Image Corrections: No attenuation or motion correction applied Summed Stress Score: 0 Summed Rest Score: 5 Summed Difference Score: 0 PERFUSION FINDINGS Small size perfusion abnormality of mild severity of mid to apical inferior, apical septal and apical anterior wall on rest images with improved tracer uptake on stress images. This is suggestive of attenuation artifact. FUNCTIONAL RESULTS (calculated via Gated SPECT) Stress Image LV EF (%): 76 Stress EDV (mL):71 TID: 1.16 Stress ESV (mL):17 FUNCTIONAL FINDINGS: The left ventricle is normal in size. Transient Ischemia Dilatation of 1.2. There is normal left ventricular systolic function. The left ventricular ejection fraction is normal with a value of 76%. There is hyperdynamic left ventricular wall thickening. IMPRESSIONS 1. Myocardial perfusion imaging is normal. 2. Overall left ventricular systolic function is normal without regional wall motion abnormalities, LVEF=76%. 3. No EKG changes with Lexiscan infusion. Refer to separate report for details. Darby Allan MD (Electronically Signed) Final Date: 27 February 2022 15:12 S
[2022-02-25] MEDS: regadenoson 0.4 Mg/5 ml Syringe IVP (11:42)
[2022-02-25 11:52] VITALS: BP 114/67; PULSE 79
== END 2022-02-25 09:53 | disposition home or self-care (01) ==
LOC: CDL 09:53
PROVIDERS: PCP Registered Nurse; Visit Provider Internal Medicine Cardiovascular Disease
DX: R06.02 Shortness of breath (principal)
CPT/HCPCS: 78452; 93017; A9500; J2785

== ENCOUNTER 2022-03-18 07:39 | Outpatient (CLI) | payer MEDICARE, MEDICAID, SELFPAY ==
--- NOTE | 2022-03-18 07:45 | CT_ITS ---
WS: [id number] LDCT LUNG CANCER SCREENING TECHNIQUE: Noncontrast CT of the chest with coronal and sagittal reformatted images. CLINICAL INFORMATION: lung screening COMPARISON: CT February 14, 2021 DLP: 72.39 mGy.cm DIvol: Mean CTDIvol: 1.60 (mGy) All CT scans at [facility] use at least one of these dose optimization techniques: automat ed exposure control; mA and/or kV adjustment per patient size (includes targeted exams where dose is matched to clinical indication); or iterative reconstruction. FINDINGS: Prior postoperative changes RIGHT upper lobectomy. Bronchovascular thickening along the RIGHT hilum i s stable. Postoperative parenchymal scarring RIGHT upper lobe stable in appearance. Traction bronchie ctasis RIGHT greater than LEFT upper lobes. No new suspicious pulmonary parenchymal opacities. Bronchiectasis RIGHT lower lobe with traction bronchiectasis. Normal caliber thoracic aorta. Mild aor tic calcification. Coronary calcification. No mediastinal or hilar lymphadenopathy. No axillary lymph adenopathy. Normal GE junction. CT/CT lung screening [id number] IMPRESSION: LUNG-RADS: 2-Benign Appearance or Behavior FOLLOW UP: 12 Month: Continue annual screening with LDCT
== END 2022-03-18 07:40 | disposition home or self-care (01) ==
LOC: RAD 07:39
PROVIDERS: PCP Registered Nurse; Visit Provider Internal Medicine Pulmonary Disease
DX: Z12.2 Encounter for screening for malignant neoplasm of respiratory organs (principal); F17.210 Nicotine dependence, cigarettes, uncomplicated
CPT/HCPCS: 71271

== ENCOUNTER 2022-06-15 15:00 | Emergency (ER) | payer MEDICARE, MEDICAID, SELFPAY ==
[2022-06-15] VITALS (39 sets, daily range): BP systolic 97–104; BP diastolic 62–64; PULSE 54–69; RESP 13–26; TEMP 36.1; O2SAT 91–98; BMI 29.2
--- NOTE | 2022-06-15 15:04 | ECG_ITS ---
[facility] Test Date: 2022-06-15 Pat Name: Yarely Elena Department: Room: Gender: Female Mutuel Teller: : 1965 Requested By: Marcia Centeno Order Number: [id number] Janel MD: Darby Allan M.D. Measurements Intervals [place] Rate: 61 P: 70 OR: 144 QRS: 139 QRSD: 115 T: 62 QT: 414 QTc: 419 Interpretive Statements SINUS RHYTHM INDETERMINATE AXIS INCOMPLETE RIGHT BUNDLE BRANCH BLOCK [90+ ms QRS DURATION, TERMINAL R IN V1/V2, 40+ ms S IN I/aVL/V4/V5/V6] LEFT POSTERIOR FASCICULAR BLOCK [QRS AXIS > 109, INFERIOR Q] Compared to ECG 01/16/2022 20:44:42 Left posterior fascicular block now present Sinus bradycardia no longer present Electronically Signed On 06-15-2022 20:35:41 INFECTION CONTROL MANAGER by Darby Allan M.D. [id number]
--- NOTE | 2022-06-15 15:04 | XRR_ITS ---
PROCEDURE INFORMATION: Exam: XR Chest Exam date and time: 06/15/2022 3:33 PM Age: 56 years old Clinical indication: Pain; Angina pectoris; Prior surgery; Patient HX: History of lung cancer; Additional info: Chest pain TECHNIQUE: Imaging protocol: Radiologic exam of the chest. Views: 1 view. COMPARISON: CT lung screening [id number] 03/18/2022 7:46 AM FINDINGS: Lungs: Comparison with prior single-view chest of January 16, 2022 shows chronic postsurgical changes on the right with scarring mid to lower right lung. Mild left basilar scarring again noted. No acute infiltrate or consolidation. Pleural spaces: Mild chronic pleural thickening right lung base with prior exam, without acute effusion or pneumothorax.. Heart/Mediastinum: Unremarkable. No cardiomegaly. Bones/joints: Mild thoracic scoliosis. XR/XR chest 1V portable [id number] IMPRESSION: Chronic changes as noted above when correlated with prior exam, including postsurgical changes on the right with component of scarring in the mid to lower right lung, along with mild left basilar scarring. No acute findings.
[2022-06-15 15:29] LABS: Basophils # 0.1 10^3/uL (0.0-0.1); Basophils % 0.9 %; Eosinophils # 0.1 10^3/uL (0.0-0.8); Eosinophils % 1.1 %; Hemoglobin 13.3 g/dL (11.5-15.3); Lymphocytes # 1.7 10^3/uL (0.8-4.8); Lymphocytes % 24.1 %; Mean Corpuscular HGB Conc 32.4 g/dL (30.0-36.0); Mean Corpuscular Hemoglobin 30.6 pg (28.0-34.0); Mean Corpuscular Volume 94.3 fl (81-99); Mean Platelet Volume 9.6 fL (7.4-10.4); Monocytes # 0.6 10^3/uL (0.2-0.9); Neutrophils % 65.6 %; Nucleated Red Blood Cells % 0 %; Platelet Count 251 10^3/cmm (130-400); Red Blood Count 4.35 10^6/uL (4.1-5.3); Red Cell Distribution Width 12.7 % (12.1-15.1)
--- NOTE | 2022-06-15 15:49 | ED_ITS ---
Documented by User: Jeremy Loya DO 06/17/22 06:35 HPI - Chest Pain General: Chief Complaint: Chest Pain Stated Complaint: chest pain/weak Time Seen by Provider: 06/15/22 15:17 Source: patient Mode of arrival: ambulatory History of Present Illness: 56-year-old female presents to the emergency room with complaint of chest discomfort. She was sitting at rest began to have chest discomfort she took nitro for it pain continued for another 25 minutes after taking sublingual nitroglycerin. She has been evaluated in the past for chest pain. She had a normal stress test in February 2022. She also had a normal echocardiogram. She did have some mild left ventricular hypertrophy but otherwise her testing was relatively unremarkable. Unfortunately she does have fairly severe p.o. 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 Has not previously had any kind of PTCA. She states she has had a heart attack like symptoms before but she has never had a proven episode of acute coronary syndrome. MD complaint: chest pain Onset (ago): hour(s) Timing of current episode: episodic Prior episodes: Yes Onset: during rest Pain location: substernal and left chest Severity: moderate Quality: tightness Relieving factors: nothing Exacerbating factors: nothing Associated symptoms: Deny abdominal pain, diaphoresis, dyspnea, fever(s), leg edema, nausea, palpitations, sense of impending doom, syncope or vomiting Treatment prior to arrival: nitroglycerin Review of Systems Const: Denies: fever(s), chills, fatigue, malaise or diaphoresis ENMT: Denies: throat pain, ear or mastoid pain, nasal discharge or nasal congestion Card: Denies: chest pain, palpitations or syncope Resp: Denies: dyspnea GI: Denies: abdominal pain, nausea or vomiting : Denies: flank pain, difficulty voiding, dysuria, urinary frequency or urinary urgency Skin/Breast: Denies: rash or pruritus PFSH ED PFSH: Medical History COPD (chronic obstructive pulmonary disease) History of malignant neoplasm of larynx Lung mass Surgical History H/O tubal ligation S/P cholecystectomy Status post lobectomy of lung pathology returned abscess; no malignancy identified Family History Other Cancer Social History Smoking and tobacco status: current every day smoker cigarettes Packs smoked per day: 1.75 Years cigarettes smoked: 40 Quit status (tobacco): considering quitting Second hand smoke exposure: Yes Smoking risk assessment/counseling performed?: Yes Alcohol intake: never Lives independently: Yes Household members: spouse Marital status: service: No Current occupational status: employed Pets and animals: Yes History of recent travel: No Current gender identity: Female Physical Exam Const: GENERAL APPEARANCE: cooperative and comfortable ORIENTATION/CONSCIOUSNESS: Yes awake, Yes oriented to person, Yes oriented to place and Yes oriented to time HENMT: COMMON NORMALS: normocephalic, atraumatic and hearing grossly normal bilaterally HEAD & SCALP: normocephalic and atraumatic Resp: COMMON NORMALS: normal respiratory effort, No retractions, No use of accessory muscles and clear to auscultation bilaterally AUSCULTATION: clear to auscultation bilaterally Cardio: COMMON NORMALS: regular rate, regular rhythm and No murmurs present (Cardio) RATE: regular rate RHYTHM: regular rhythm GI: COMMON NORMALS: Soft to palpation and No hepatosplenomegaly present AUSCULTATION: Yes normoactive bowel sounds PALPATION: Yes Soft to palpation, No Tenderness to palpation present (GI), No Guarding due to palpation present (GI) and Yes No hepatosplenomegaly present Extremity: COMMON NORMALS: normal to inspection, capillary refill normal, no clubbing, cyanosis or edema, no calf tenderness and no pedal edema Neuro: SENSORIUM/ORIENTATION: Yes oriented to person, Yes oriented to place and Yes oriented to time Skin: COMMON NORMALS: no rashes or lesions noted GENERAL SKIN EXAM: no rashes or lesions noted Course Vital Signs: Vital signs: Vital Signs Temperature 97.0 F L 06/15/22 15:10 Pulse Rate 58 L 06/15/22 18:39 Respiratory Rate 18 06/15/22 18:39 Blood Pressure 104/64 06/15/22 18:39 Pulse Oximetry 98 06/15/22 18:39 Oxygen Delivery Me thod 06/15/22 15:10 MDM - Chest Pain Medical Decision Making Care signed out to Dr. Golden at change of shift. See final notes for diagnosis and disposition. Patient presents for chest pain is atypical in nature initial repeat troponins here normal x-rays normal as well she is stable for discharge she is to follow- up with PCP and return if worsening she understands agrees to plan. Medical Records I reviewed the patient's medical records. Lab Data I reviewed the patient's lab results. 06/15/22 15:20 06/15/22 15:20 Radiology Impressions Chest X-Ray 06/15/22 15:04 IMPRESSION: Chronic changes as noted above when correlated with prior exam, including postsurgical changes on the right with component of scarring in the mid to lower right lung, along with mild left basilar scarring. No acute findings. Laboratory Results WBC 7.0 10^3/uL (4.0-10.0) 06/15/22 15:20 RBC 4.35 10^6/uL (4.1-5.3) 06/15/22 15:20 Hgb 13.3 g/dL (11.5-15.3) 06/15/22 15:20 Hct 41.0 % (37.0-47.0) 06/15/22 15:20 MCV 94.3 fl (81-99) 06/15/22 15:20 MCH 30.6 pg (28.0-34.0) 06/15/22 15:20 MCHC 32.4 g/dL (30.0-36.0) 06/15/22 15:20 RDW 12.7 % (12.1-15.1) 06/15/22 15:20 Plt Count 251 10^3/cmm (130-400) 06/15/22 15:20 MPV 9.6 fL (7.4-10.4) 06/15/22 15:20 Neut % (Auto) 65.6 % 06/15/22 15:20 Lymph % (Auto) 24.1 % 06/15/22 15:20 [place] % (Auto) 8.0 % 06/15/22 15:20 Eos % (Auto) 1.1 % 06/15/22 15:20 Baso % (Auto) 0.9 % 06/15/22 15:20 Neut # (Auto) 4.60 10^3/uL (1.8-7.7) 06/15/22 15:20 Lymph # (Auto) 1.7 10^3/uL (0.8-4.8) 06/15/22 15:20 [place] # (Auto) 0.6 10^3/uL (0.2-0.9) 06/15/22 15:20 Eos # (Auto) 0.1 10^3/uL (0.0-0.8) 06/15/22 15:20 Baso # (Auto) 0.1 10^3/uL (0.0-0.1) 06/15/22 15:20 Nucleated RBC % (auto) 0 % 06/15/22 15:20 Nucleated RBCs # 0.0 /100WBC 06/15/22 15:20 Sodium 134 mmol/L (136-145) L 06/15/22 15:20 Potassium 4.0 mmol/L (3.5-5.1) 06/15/22 15:20 Chloride 99 mmol/L (98-107) 06/15/22 15:20 Carbon Dioxide 27 mmol/L (22-29) 06/15/22 15:20 Anion Gap 12.0 (5-19) 06/15/22 15:20 BUN 9 mg/dL (6-20) 06/15/22 15:20 Creatinine 0.8 mg/dL (0.5-0.9) 06/15/22 15:20 GFR Calculation 73.7 mL/min (90-130) L 06/15/22 15:20 Glucose 106 mg/dL (65-115) 06/15/22 15:20 Calculated Osmolality 277 mOsm/kg (285-295) L 06/15/22 15:20 Calcium 9.4 mg/dL (8.5-10.5) 06/15/22 15:20 Total Bilirubin 1.0 mg/dL (0.15-1.2) 06/15/22 15:20 AST 16 U/L (0-32) 06/15/22 15:20 ALT 11 U/L (0-33) 06/15/22 15:20 Alkaline Phosphatase 77 U/L (35-105) 06/15/22 15:20 Troponin T Baseline 9 ng/L (0-10) 06/15/22 15:20 Troponin T 120 Minute 6.68 ng/L (0-10) 06/15/22 17:47 Delta Troponin T -2.32 ABS# (0-10) L 06/15/22 17:47 Total Protein 6.7 g/dL (6.6-8.7) 06/15/22 15:20 Albumin 4.3 g/dL (3.5-5.2) 06/15/22 15:20 Globulin 2.4 g/dL (1.3-4.6) 06/15/22 15:20 Discharge Plan Discharge Patient Disposition: Home Clinical Impression: Chest pain Condition: Stable Prescriptions: No Action atorvastatin 20 mg tablet 40 mg PO DAILY ipratropium bromide 0.02 % solution 2.5 ml inhalation QID PRN (Reason: Shortness Of Breath) albuterol sulfate 2.5 mg /3 mL (0.083 %) solution for nebulization 2.5 mg inhalation Q4H PRN (Reason: Shortness Of Breath) Trelegy Ellipta 100-62.5-25 mcg blister with device 1 inh inhalation DAILY Qty: 60 3RF cholecalciferol (vitamin D3) 25 mcg (1,000 unit) capsule 25 mcg PO DAILY nitroglycerin 0.4 mg tablet, sublingual 0.4 mg sublingual Q5M PRN (Reason: chest pain) Qty: 30 1RF Rx Instructions: do not exceed 3 doses per episode albuterol sulfate [Ventolin HFA] 90 mcg/actuation Hfa Aerosol Inhaler 1 inh INHALATION QID PRN (Reason: Dyspnea) Discharge Orders: Discharge ED (Routine); Ordered 06/15/22 Ordered By: Hector Golden Referrals: Jamir South CPNP [Primary Care Provider] - 1-3 days Discharge Diet: Advance as tolerated Discharge Activity: Resume usual activity Patient Instructions: Chest Pain (ED) Coding Level of Care Code ED Glass Ribbon Machine Operator for Chg Fwd Documented by User: Hector Golden MD 06/15/22 18:24 HPI - Chest Pain General: Chief Complaint: Chest Pain Stated Complaint: chest pain/weak Time Seen by Provider: 06/15/22 15:17 PFSH ED PFSH: Medical History COPD (chronic obstructive pulmonary disease) History of malignant neoplasm of larynx Lung mass Surgical History H/O tubal ligation S/P cholecystectomy Status post lobectomy of lung pathology returned abscess; no malignancy identified Family History Other Cancer Social History Smoking and tobacco status: current every day smoker cigarettes Packs smoked per day: 1.75 Years cigarettes smoked: 40 Quit status (tobacco): considering quitting Second hand smoke exposure: Yes Smoking risk assessment/counseling performed?: Yes Alcohol intake: never Lives independently: Yes Household members: spouse Marital status: service: No Current occupational status: employed Pets and animals: Yes History of recent travel: No Current gender identity: Female Course Vital Signs: Vital signs: Vital Signs Temperature 97.0 F L 06/15/22 15:10 Pulse Rate 58 L 06/15/22 18:39 Respiratory Rate 18 06/15/22 18:39 Blood Pressure 104/64 06/15/22 18:39 Pulse Oximetry 98 06/15/22 18:39 Oxygen Delivery Me thod 06/15/22 15:10 MDM - Chest Pain Medical Decision Making Patient presents for chest pain is atypical in nature initial repeat troponins here normal x-rays normal as well she is stable for discharge she is to follow- up with PCP and return if worsening she understands agrees to plan. Lab Data 06/15/22 15:20 06/15/22 15:20 Radiology Impressions Chest X-Ray 06/15/22 15:04 IMPRESSION: Chronic changes as noted above when correlated with prior exam, including postsurgical changes on the right with component of scarring in the mid to lower right lung, along with mild left basilar scarring. No acute findings. Laboratory Results WBC 7.0 10^3/uL (4.0-10.0) 06/15/22 15:20 RBC 4.35 10^6/uL (4.1-5.3) 06/15/22 15:20 Hgb 13.3 g/dL (11.5-15.3) 06/15/22 15:20 Hct 41.0 % (37.0-47.0) 06/15/22 15:20 MCV 94.3 fl (81-99) 06/15/22 15:20 MCH 30.6 pg (28.0-34.0) 06/15/22 15:20 MCHC 32.4 g/dL (30.0-36.0) 06/15/22 15:20 RDW 12.7 % (12.1-15.1) 06/15/22 15:20 Plt Count 251 10^3/cmm (130-400) 06/15/22 15:20 MPV 9.6 fL (7.4-10.4) 06/15/22 15:20 Neut % (Auto) 65.6 % 06/15/22 15:20 Lymph % (Auto) 24.1 % 06/15/22 15:20 [place] % (Auto) 8.0 % 06/15/22 15:20 Eos % (Auto) 1.1 % 06/15/22 15:20 Baso % (Auto) 0.9 % 06/15/22 15:20 Neut # (Auto) 4.60 10^3/uL (1.8-7.7) 06/15/22 15:20 Lymph # (Auto) 1.7 10^3/uL (0.8-4.8) 06/15/22 15:20 [place] # (Auto) 0.6 10^3/uL (0.2-0.9) 06/15/22 15:20 Eos # (Auto) 0.1 10^3/uL (0.0-0.8) 06/15/22 15:20 Baso # (Auto) 0.1 10^3/uL (0.0-0.1) 06/15/22 15:20 Nucleated RBC % (auto) 0 % 06/15/22 15:20 Nucleated RBCs # 0.0 /100WBC 06/15/22 15:20 Sodium 134 mmol/L (136-145) L 06/15/22 15:20 Potassium 4.0 mmol/L (3.5-5.1) 06/15/22 15:20 Chloride 99 mmol/L (98-107) 06/15/22 15:20 Carbon Dioxide 27 mmol/L (22-29) 06/15/22 15:20 Anion Gap 12.0 (5-19) 06/15/22 15:20 BUN 9 mg/dL (6-20) 06/15/22 15:20 Creatinine 0.8 mg/dL (0.5-0.9) 06/15/22 15:20 GFR Calculation 73.7 mL/min (90-130) L 06/15/22 15:20 Glucose 106 mg/dL (65-115) 06/15/22 15:20 Calculated Osmolality 277 mOsm/kg (285-295) L 06/15/22 15:20 Calcium 9.4 mg/dL (8.5-10.5) 06/15/22 15:20 Total Bilirubin 1.0 mg/dL (0.15-1.2) 06/15/22 15:20 AST 16 U/L (0-32) 06/15/22 15:20 ALT 11 U/L (0-33) 06/15/22 15:20 Alkaline Phosphatase 77 U/L (35-105) 06/15/22 15:20 Troponin T Baseline 9 ng/L (0-10) 06/15/22 15:20 Troponin T 120 Minute 6.68 ng/L (0-10) 06/15/22 17:47 Delta Troponin T -2.32 ABS# (0-10) L 06/15/22 17:47 Total Protein 6.7 g/dL (6.6-8.7) 06/15/22 15:20 Albumin 4.3 g/dL (3.5-5.2) 06/15/22 15:20 Globulin 2.4 g/dL (1.3-4.6) 06/15/22 15:20 Discharge Plan Discharge Patient Disposition: Home Clinical Impression: Chest pain Condition: Stable Prescriptions: No Action atorvastatin 20 mg tablet 40 mg PO DAILY ipratropium bromide 0.02 % solution 2.5 ml inhalation QID PRN (Reason: Shortness Of Breath) albuterol sulfate 2.5 mg /3 mL (0.083 %) solution for nebulization 2.5 mg inhalation Q4H PRN (Reason: Shortness Of Breath) Trelegy Ellipta 100-62.5-25 mcg blister with device 1 inh inhalation DAILY Qty: 60 3RF cholecalciferol (vitamin D3) 25 mcg (1,000 unit) capsule 25 mcg PO DAILY nitroglycerin 0.4 mg tablet, sublingual 0.4 mg sublingual Q5M PRN (Reason: chest pain) Qty: 30 1RF Rx Instructions: do not exceed 3 doses per episode albuterol sulfate [Ventolin HFA] 90 mcg/actuation Hfa Aerosol Inhaler 1 inh INHALATION QID PRN (Reason: Dyspnea) Discharge Orders: Discharge ED (Routine); Ordered 06/15/22 Ordered By: Hector Golden Referrals: Jamir South CPNP [Primary Care Provider] - 1-3 days Discharge Diet: Advance as tolerated Discharge Activity: Resume usual activity Patient Instructions: Chest Pain (ED) Coding Level of Care Code ED Glass Ribbon Machine Operator for Rony Jackson
[2022-06-15 15:50] LABS: Troponin(5th) Baseline 9 ng/L (0-10)
[2022-06-15 15:51] LABS: Alanine Aminotransferase 11 U/L (0-33); Albumin Level 4.3 g/dL (3.5-5.2); Alkaline Phosphatase 77 U/L (35-105); Aspartate Amino Transferase 16 U/L (0-32); Blood Urea Nitrogen 9 mg/dL (6-20); Calcium 9.4 mg/dL (8.5-10.5); Carbon Dioxide 27 mmol/L (22-29); Chloride 99 mmol/L (98-107); Globulin 2.4 g/dL (1.3-4.6); Glomerular Filtration Rate 73.7 mL/min (90-130); Glucose 106 mg/dL (65-115); Osmolality Calculated 277 mOsm/kg (285-295); Sodium 134 mmol/L (136-145); Total Protein 6.7 g/dL (6.6-8.7)
--- NOTE | 2022-06-15 17:04 | ECG_ITS ---
[facility] Test Date: 2022-06-15 Pat Name: Yarely Elena Department: Room: Gender: Female Repairer And Checker: : 1965 Requested By: Marcia Centeno Order Number: [id number] Janel MD: Darby Allan M.D. Measurements Intervals [place] Rate: 59 P: 62 FL: 152 QRS: 49 QRSD: 117 T: 47 QT: 434 QTc: 431 Interpretive Statements SINUS BRADYCARDIA INDETERMINATE AXIS INCOMPLETE RIGHT BUNDLE BRANCH BLOCK [90+ ms QRS DURATION, TERMINAL R IN V1/V2, 40+ ms S IN I/aVL/V4/V5/V6] Compared to ECG 01/16/2022 20:44:42 No significant changes Electronically Signed On 06-15-2022 22:02:31 WEIGHT AND BALANCE CONTROL AGENT by Darby Allan M.D. [id number]
[2022-06-15 18:13] LABS: Troponin 5 2HR 6.68 ng/L (0-10)
[2022-06-15 18:24] LABS: Troponin 5 2HR Delta -2.32 ABS# (0-10)
== END 2022-06-15 18:47 | disposition home or self-care (01) ==
PROVIDERS: Physician Assistant; Emergency Provider Emergency Medicine; PCP Registered Nurse
DX: R07.9 Chest pain, unspecified (principal); J44.9 Chronic obstructive pulmonary disease, unspecified; Z85.21 Personal history of malignant neoplasm of larynx; Z90.2 Acquired absence of lung [part of]; F17.210 Nicotine dependence, cigarettes, uncomplicated
CPT/HCPCS: 36415; 71045; 80053; 84484; 85025; 93005; 99285

== ENCOUNTER → 2022-07-10 10:56 | Outpatient (BNVA) | payer MEDICARE, MEDICAID, SELFPAY | PROVIDERS: PCP Registered Nurse; Visit Provider Nurse Practitioner Family | DX: R07.9 Chest pain, unspecified (principal) | CPT/HCPCS: 99213 ==

== ENCOUNTER → 2022-08-03 10:14 | Outpatient (BNVA) | payer MEDICARE, MEDICAID, SELFPAY | PROVIDERS: PCP Registered Nurse; Visit Provider Internal Medicine Pulmonary Disease | DX: J43.2 Centrilobular emphysema (principal); J47.9 Bronchiectasis, uncomplicated; F17.210 Nicotine dependence, cigarettes, uncomplicated; Z85.21 Personal history of malignant neoplasm of larynx; Z92.21 Personal history of antineoplastic chemotherapy; Z90.2 Acquired absence of lung [part of]; Z92.3 Personal history of irradiation; Z90.89 Acquired absence of other organs | CPT/HCPCS: 71046; 99214 ==

== ENCOUNTER → 2023-02-10 14:32 | Outpatient (BNVA) | payer MEDICARE, MEDICAID, SELFPAY | PROVIDERS: PCP Registered Nurse; Visit Provider Internal Medicine Cardiovascular Disease | DX: R06.00 Dyspnea, unspecified (principal); I28.8 Other diseases of pulmonary vessels; J43.2 Centrilobular emphysema; F17.200 Nicotine dependence, unspecified, uncomplicated; Z90.2 Acquired absence of lung [part of]; F17.210 Nicotine dependence, cigarettes, uncomplicated | CPT/HCPCS: 99214 ==

== ENCOUNTER → 2023-02-25 14:15 | Outpatient (BNVA) | payer MEDICARE, MEDICAID, SELFPAY | PROVIDERS: PCP Registered Nurse; Visit Provider Internal Medicine Pulmonary Disease | DX: J43.2 Centrilobular emphysema (principal); Z71.6 Tobacco abuse counseling; Z90.2 Acquired absence of lung [part of]; Z85.21 Personal history of malignant neoplasm of larynx; J47.9 Bronchiectasis, uncomplicated; G47.34 Idiopathic sleep related nonobstructive alveolar hypoventilation; F17.210 Nicotine dependence, cigarettes, uncomplicated | CPT/HCPCS: 99214 ==

== ENCOUNTER 2023-03-19 08:53 | Outpatient (CLI) | payer MEDICARE, MEDICAID, SELFPAY ==
--- NOTE | 2023-03-19 09:00 | CT_ITS ---
WS: [id number] LDCT LUNG CANCER SCREENING TECHNIQUE: Noncontrast CT of the chest with coronal and sagittal reformatted images. CLINICAL INFORMATION: Cancer Screen COMPARISON: 2021 DLP: 55.10 mGy.cm DIvol: Mean CTDIvol: 1.10 (mGy) All CT scans at [facility] use at least one of these dose optimization techniques: automat ed exposure control; mA and/or kV adjustment per patient size (includes targeted exams where dose is matched to clinical indication); or iterative reconstruction. FINDINGS: No new suspicious pulmonary parenchymal opacities Prior postoperative changes RIGHT upper lobectomy. Bronchovascular thickening along the RIGHT hilum i s unchanged. Postoperative parenchymal scarring RIGHT upper lobe stable in appearance. Traction bronc hiectasis RIGHT greater than LEFT upper lobes and RIGHT lower lobe similar to previous. Normal caliber thoracic aorta. Mild aortic calcification. Coronary calcification. No mediastinal or h ilar lymphadenopathy. No axillary lymphadenopathy. Normal GE junction. Cholecystectomy clips. IMPRESSION: CT/CT lung screening [id number] LUNG-RADS: 2-Benign Appearance or Behavior FOLLOW UP: 12 Month: Continue annual screening with LDCT
== END 2023-03-19 08:54 | disposition home or self-care (01) ==
LOC: RAD 08:54
PROVIDERS: PCP Registered Nurse; Visit Provider Internal Medicine Pulmonary Disease
DX: Z12.2 Encounter for screening for malignant neoplasm of respiratory organs (principal); F17.210 Nicotine dependence, cigarettes, uncomplicated
CPT/HCPCS: 71271

== ENCOUNTER → 2023-09-27 09:25 | Outpatient (BNVA) | payer MEDICARE, MEDICAID, SELFPAY | PROVIDERS: PCP Registered Nurse; Visit Provider Internal Medicine Pulmonary Disease | DX: J43.2 Centrilobular emphysema (principal); F17.210 Nicotine dependence, cigarettes, uncomplicated; Z71.6 Tobacco abuse counseling; Z90.2 Acquired absence of lung [part of]; Z85.21 Personal history of malignant neoplasm of larynx; J47.9 Bronchiectasis, uncomplicated; G47.34 Idiopathic sleep related nonobstructive alveolar hypoventilation | CPT/HCPCS: 99214 ==

== ENCOUNTER → 2024-01-11 09:34 | Outpatient (BNVA) | payer MEDICARE, MEDICAID, SELFPAY | PROVIDERS: PCP Registered Nurse; Visit Provider Nurse Practitioner Family | DX: I10 Essential (primary) hypertension (principal); F17.210 Nicotine dependence, cigarettes, uncomplicated | CPT/HCPCS: 99213 ==

== ENCOUNTER → 2025-02-08 10:21 | Outpatient (BNVA) | payer MEDICARE, MEDICAID, SELFPAY | PROVIDERS: PCP Registered Nurse; Visit Provider Internal Medicine Cardiovascular Disease | DX: J44.9 Chronic obstructive pulmonary disease, unspecified (principal); I10 Essential (primary) hypertension; F17.210 Nicotine dependence, cigarettes, uncomplicated | CPT/HCPCS: 99204; 99214 ==